=== PATIENT | female | born 1935 | race Caucasian/White ===

== ENCOUNTER → 2018-06-25 | Outpatient (CLI) | payer OTHER ==
[~2018-06-25] MED LIST: ALEN70 PO; CALCAVITD PO; CALCAVITDA; CELE200 PO; CHOL10002; CHOL10002 PO; FOLI1 PO; HYDSUL200 PO; Hair, Skin & N1 EACH; METTREX2.5; METTREX2.5 PO; ONE DAILY COMP1 EACH PO; SULF500A PO
[2018-06-29 15:07] LABS: HPV 16 Negative (Negative); HPV 18 Negative (Negative); HPV OTHER HR TYPES Negative (Negative)
== END ==
LOC: LAB 17:37 → LAB SHORT 17:37
PROVIDERS: Nurse Practitioner Women's Health
DX: Z12.4 Encounter for screening for malignant neoplasm of cervix (principal); N89.8 Other specified noninflammatory disorders of vagina
CPT/HCPCS: 87070; 87077; 87186; 87205; 87624; G0123

== ENCOUNTER 2020-02-11 00:24 | Day surgery (SDC) | payer OTHER | END 2020-02-11 11:15 | disposition home or self-care (01) | LOC: ATC 00:24 | DX: M05.9 Rheumatoid arthritis with rheumatoid factor, unspecified (principal); J44.9 Chronic obstructive pulmonary disease, unspecified | CPT/HCPCS: J7050; Q5103 ==

== ENCOUNTER 2020-04-28 00:08 | Day surgery (SDC) | payer OTHER ==
[~2020-04-28 00:08] MED LIST changes: -CALCAVITDA; -CHOL10002 PO; +OYSTER SHELL 51 EACH PO; +VITAMIN D32000 UNI1 PO
[2020-04-28] MEDS ORDERED: PRED5 PO (09:40)
--- NOTE | 2020-04-28 11:40 | NUR ---
PT C/O SLIGHT DIZZINESS UPON STANDING AFTER RECLINING. RN HAD PT SIT UP FOR A FEW MINUTES UNTIL PT STATED SHE FELT BETTER. THIS RN OFFERED TO TRANSPORT PT TO HER VEHICLE BUT PT ADAMANTLY REFUSED. PT WAS LAST SEEN AMBULATING OUT THE RASHIDA DOOR.
== END 2020-04-28 11:37 | disposition home or self-care (01) ==
LOC: ATC 00:08
DX: M05.9 Rheumatoid arthritis with rheumatoid factor, unspecified (principal); Z79.899 Other long term (current) drug therapy
CPT/HCPCS: 96413; J7050; Q5103

== ENCOUNTER 2020-06-05 12:36 | Emergency (ER) | payer OTHER ==
[~2020-06-05] VITALS: Ht 403.9 cm; Wt 46.3 kg
[~2020-06-05 12:36] MED LIST changes: +PRED5 PO
== END 2020-06-05 15:15 | disposition home or self-care (01) ==
LOC: ER 12:36
DX: S20.219A Contusion of unspecified front wall of thorax, initial encounter (principal); Z79.899 Other long term (current) drug therapy; Z79.52 Long term (current) use of systemic steroids; V09.20XA Pedestrian injured in traffic accident involving unspecified motor vehicles, initial encounter; V89.2XXA Person injured in unspecified motor-vehicle accident, traffic, initial encounter
CPT/HCPCS: 71046; 99284-25

== ENCOUNTER → 2020-07-29 | Outpatient (CLI) | payer OTHER ==
[2020-07-29 10:22] LABS: BASOPHILS ABSOLUTE AUTO 0.06 K/mm3 (0.00-0.23); BASOPHILS PERCENT AUTO 1 % (0-2); EOSINOPHILS ABSOLUTE AUTO 0.12 K/mm3 (0.00-0.68); EOSINOPHILS PERCENT AUTO 1 % (0-6); Hematocrit 38.2 % (33.0-51.0); Hemoglobin 12.1 g/dL (11.5-16.0); IMMATURE GRAN ABSOLUTE AUTO 0.04 K/mm3 (0.00-0.10); IMMATURE GRAN PERCENT AUTO 0 % (0-1); LYMPHOCYTES ABSOLUTE AUTO 0.94 K/mm3 (0.84-5.20); LYMPHOCYTES PERCENT AUTO 8 % (21-46); MONOCYTES ABSOLUTE AUTO 0.46 K/mm3 (0.16-1.47); MONOCYTES PERCENT AUTO 4 % (4-13); Mean Corpuscular HGB 29.9 pg (26.0-34.0); Mean Corpuscular HGB Conc 31.7 g/dL (31.5-36.5); Mean Corpuscular Volume 94 fL (80-100); Mean Platelet Volume 9.1 fL (9.1-12.4); NEUTROPHILS ABSOLUTE AUTO 10.02 K/mm3 (1.96-9.15); NEUTROPHILS PERCENT AUTO 86 % (41-73); Platelet Count 454 K/mm3 (150-400); RDW Coefficient Variation 14.8 % (11.7-14.2); RDW Standard Deviation 51.4 fL (35.1-46.3); Red Blood Cell Count 4.05 M/mm3 (3.80-5.20); White Blood Cell Count 11.64 K/mm3 (4.00-11.30)
[2020-07-29 10:39] LABS: Albumin, Blood 3.4 g/dL (3.4-5.0); Albumin/Globulin Ratio 0.8 (0.8-1.8); Bilirubin, Total 0.3 mg/dL (0.1-1.0); Bun/Creatinine Ratio 26.5 (12.0-20.0); Calcium, Blood 9.1 mg/dL (8.5-10.1); Creatinine, Blood 0.98 mg/dL (0.40-1.00); Globulin, Blood 4.5 g/dL (2.2-4.0); Potassium, Blood 4.6 mmol/L (3.5-5.5); Thyroid Stimulating Hormone 1.598 uIU/mL (0.360-4.800); Total Protein, Blood 7.9 g/dL (6.4-8.2); Uric Acid, Blood 4.2 mg/dL (2.6-6.0)
== END ==
LOC: LAB SHORT 10:16 → LAB EV 10:16
PROVIDERS: Physician Assistant
DX: L03.116 Cellulitis of left lower limb (principal); R53.83 Other fatigue
CPT/HCPCS: 80053; 84443; 84550; 85025

== ENCOUNTER → 2020-08-02 | Outpatient (CLI) | payer OTHER | END | disposition home or self-care (01) | LOC: LAB 16:45 → LAB SHORT 16:45 | DX: L03.116 Cellulitis of left lower limb (principal) | CPT/HCPCS: 87070; 87075; 87205 ==

== ENCOUNTER 2020-08-18 01:35 | Day surgery (SDC) | payer OTHER | END 2020-08-18 11:55 | disposition home or self-care (01) | LOC: ATC 01:35 | DX: M05.9 Rheumatoid arthritis with rheumatoid factor, unspecified (principal); J44.9 Chronic obstructive pulmonary disease, unspecified | CPT/HCPCS: 96413; 96415; A9270; J7050; Q5103 ==

== ENCOUNTER 2020-10-16 00:14 | Day surgery (SDC) | payer OTHER | END 2020-10-16 11:30 | disposition home or self-care (01) | LOC: ATC 00:14 | DX: M05.9 Rheumatoid arthritis with rheumatoid factor, unspecified (principal); M81.0 Age-related osteoporosis without current pathological fracture; J44.9 Chronic obstructive pulmonary disease, unspecified; Z79.899 Other long term (current) drug therapy; Z79.52 Long term (current) use of systemic steroids | CPT/HCPCS: A9270; J7050; Q5103 ==

== ENCOUNTER 2020-12-11 00:21 | Day surgery (SDC) | payer OTHER | END 2020-12-11 11:23 | disposition home or self-care (01) | LOC: ATC 00:21 | DX: M05.9 Rheumatoid arthritis with rheumatoid factor, unspecified (principal); M81.0 Age-related osteoporosis without current pathological fracture; J44.9 Chronic obstructive pulmonary disease, unspecified; M19.90 Unspecified osteoarthritis, unspecified site; Z79.899 Other long term (current) drug therapy; Z79.1 Long term (current) use of non-steroidal anti-inflammatories (NSAID) | CPT/HCPCS: 96413; 96415; A9270; J7050; Q5103 ==

== ENCOUNTER 2021-02-05 00:36 | Day surgery (SDC) | payer OTHER | END 2021-02-05 11:58 | disposition home or self-care (01) | LOC: ATC 00:36 | DX: M05.9 Rheumatoid arthritis with rheumatoid factor, unspecified (principal); J44.9 Chronic obstructive pulmonary disease, unspecified; Z86.010 Personal history of colon polyps; Z79.899 Other long term (current) drug therapy | CPT/HCPCS: 96413; A9270; J7050; Q5103 ==

== ENCOUNTER 2021-04-02 00:05 | Day surgery (SDC) | payer OTHER | END 2021-04-02 11:18 | disposition home or self-care (01) | LOC: ATC 00:05 | DX: M05.9 Rheumatoid arthritis with rheumatoid factor, unspecified (principal); J44.9 Chronic obstructive pulmonary disease, unspecified | CPT/HCPCS: 96413; 96415; A9270; J7050; Q5103 ==

== ENCOUNTER 2021-05-30 01:46 | Day surgery (SDC) | payer OTHER ==
[2021-05-31 18:07] LABS: BASOPHILS ABSOLUTE AUTO 0.05 K/mm3 (0.00-0.23); BASOPHILS PERCENT AUTO 1 % (0-2); EOSINOPHILS ABSOLUTE AUTO 0.22 K/mm3 (0.00-0.68); EOSINOPHILS PERCENT AUTO 4 % (0-6); IMMATURE GRAN ABSOLUTE AUTO 0.01 K/mm3 (0.00-0.10); IMMATURE GRAN PERCENT AUTO 0 % (0-1); LYMPHOCYTES ABSOLUTE AUTO 1.37 K/mm3 (0.84-5.20); LYMPHOCYTES PERCENT AUTO 22 % (21-46); MONOCYTES ABSOLUTE AUTO 0.51 K/mm3 (0.16-1.47); MONOCYTES PERCENT AUTO 8 % (4-13); Mean Corpuscular HGB 31.8 pg (26.0-34.0); Mean Corpuscular HGB Conc 31.6 g/dL (31.5-36.5); Mean Corpuscular Volume 101 fL (80-100); Mean Platelet Volume 10.9 fL (9.1-12.4); NEUTROPHILS PERCENT AUTO 65 % (41-73); Platelet Count 285 K/mm3 (150-400); RDW Coefficient Variation 13.4 % (11.7-14.2); RDW Standard Deviation 49.1 fL (35.1-46.3); Red Blood Cell Count 3.77 M/mm3 (3.80-5.20)
[2021-05-31 21:31] LABS: Alanine Aminotransfer (ALT/SGP 32 U/L (12-78); Albumin, Blood 3.6 g/dL (3.4-5.0); Albumin/Globulin Ratio 1.1 (0.8-1.8); Alk Phos 44 U/L (50-136); Anion Gap 6 mmol/L (6-16); Aspartate Aminotrans (AST/SGOT 43 U/L (12-37); Bilirubin, Total 0.4 mg/dL (0.1-1.0); Blood Urea Nitrogen 25 mg/dL (8-24); Bun/Creatinine Ratio 32.8 (12.0-20.0); CO2, Blood 25 mmol/L (21-32); Calcium, Blood 9.1 mg/dL (8.5-10.1); Chloride, Blood 106 mmol/L (98-108); Creatinine, Blood 0.76 mg/dL (0.40-1.00); Globulin, Blood 3.4 g/dL (2.2-4.0); Glomerular Filtration Rate >60 (60-); Glucose, Blood 131 mg/dL (70-99); Potassium, Blood 4.2 mmol/L (3.5-5.5)
[2021-06-05 12:21] LABS: White Blood Cell Count 6.16 K/mm3 (4.00-11.30)
[2021-06-05 12:22] LABS: Sodium, Blood 137 mmol/L (136-145)
== END 2021-05-30 16:43 | disposition home or self-care (01) ==
LOC: ATC 01:46
PROVIDERS: Internal Medicine Rheumatology
DX: M05.9 Rheumatoid arthritis with rheumatoid factor, unspecified (principal); J44.9 Chronic obstructive pulmonary disease, unspecified
CPT/HCPCS: 80053; 85025; 85651; 96413; 96415; A9270; J7050; Q5103

== ENCOUNTER 2021-07-25 02:20 | Day surgery (SDC) | payer OTHER ==
[~2021-07-25] VITALS: Wt 47.4 kg
[2021-07-25] MEDS ORDERED: INFLECTRA100 MG IV (09:22)
[2021-07-25 09:33] LABS: BASOPHILS ABSOLUTE AUTO 0.07 K/mm3 (0.00-0.23); BASOPHILS PERCENT AUTO 1 % (0-2); EOSINOPHILS ABSOLUTE AUTO 0.29 K/mm3 (0.00-0.68); EOSINOPHILS PERCENT AUTO 4 % (0-6); Hematocrit 40.8 % (33.0-51.0); IMMATURE GRAN ABSOLUTE AUTO 0.02 K/mm3 (0.00-0.10); IMMATURE GRAN PERCENT AUTO 0 % (0-1); LYMPHOCYTES ABSOLUTE AUTO 1.61 K/mm3 (0.84-5.20); LYMPHOCYTES PERCENT AUTO 23 % (21-46); MONOCYTES ABSOLUTE AUTO 0.57 K/mm3 (0.16-1.47); MONOCYTES PERCENT AUTO 8 % (4-13); Mean Corpuscular HGB 31.8 pg (26.0-34.0); Mean Corpuscular HGB Conc 31.9 g/dL (31.5-36.5); Mean Corpuscular Volume 100 fL (80-100); Mean Platelet Volume 9.7 fL (9.1-12.4); NEUTROPHILS ABSOLUTE AUTO 4.56 K/mm3 (1.96-9.15); NEUTROPHILS PERCENT AUTO 64 % (41-73); Platelet Count 324 K/mm3 (150-400); RDW Coefficient Variation 13.2 % (11.7-14.2); RDW Standard Deviation 47.9 fL (35.1-46.3); Red Blood Cell Count 4.09 M/mm3 (3.80-5.20); White Blood Cell Count 7.12 K/mm3 (4.00-11.30)
[2021-07-25 09:53] LABS: Alanine Aminotransfer (ALT/SGP 31 U/L (12-78); Albumin, Blood 4.1 g/dL (3.4-5.0); Alk Phos 127 U/L (50-136); Anion Gap 3 mmol/L (6-16); Aspartate Aminotrans (AST/SGOT 31 U/L (12-37); Bilirubin, Total 0.6 mg/dL (0.1-1.0); Blood Urea Nitrogen 20 mg/dL (8-24); Bun/Creatinine Ratio 26.9 (12.0-20.0); CO2, Blood 29 mmol/L (21-32); Calcium, Blood 9.8 mg/dL (8.5-10.1); Chloride, Blood 107 mmol/L (98-108); Creatinine, Blood 0.74 mg/dL (0.40-1.00); Globulin, Blood 4.2 g/dL (2.2-4.0); Glomerular Filtration Rate >60 (60-); Glucose, Blood 66 mg/dL (70-99); Potassium, Blood 3.7 mmol/L (3.5-5.5); Sodium, Blood 139 mmol/L (136-145); Total Protein, Blood 8.3 g/dL (6.4-8.2)
== END 2021-07-25 11:20 | disposition home or self-care (01) ==
LOC: ATC 02:20
PROVIDERS: Internal Medicine Rheumatology
DX: M05.9 Rheumatoid arthritis with rheumatoid factor, unspecified (principal); J44.9 Chronic obstructive pulmonary disease, unspecified
CPT/HCPCS: 80053; 85025; 85651; 96413; 96415; A9270; J7050; Q5103

== ENCOUNTER 2021-11-01 00:57 | Day surgery (SDC) | payer OTHER ==
[~2021-11-01] VITALS: Wt 48.2 kg
[~2021-11-01 00:57] MED LIST changes: +INFLECTRA100 MG IV
[2021-11-01 14:33] LABS: BASOPHILS ABSOLUTE AUTO 0.03 K/mm3 (0.00-0.23); BASOPHILS PERCENT AUTO 1 % (0-2); EOSINOPHILS ABSOLUTE AUTO 0.16 K/mm3 (0.00-0.68); EOSINOPHILS PERCENT AUTO 3 % (0-6); Hematocrit 40.7 % (33.0-51.0); Hemoglobin 12.8 g/dL (11.5-16.0); IMMATURE GRAN ABSOLUTE AUTO 0.02 K/mm3 (0.00-0.10); IMMATURE GRAN PERCENT AUTO 0 % (0-1); LYMPHOCYTES ABSOLUTE AUTO 1.28 K/mm3 (0.84-5.20); LYMPHOCYTES PERCENT AUTO 23 % (21-46); MONOCYTES ABSOLUTE AUTO 0.39 K/mm3 (0.16-1.47); MONOCYTES PERCENT AUTO 7 % (4-13); Mean Corpuscular HGB 30.8 pg (26.0-34.0); Mean Corpuscular HGB Conc 31.4 g/dL (31.5-36.5); Mean Corpuscular Volume 98 fL (80-100); Mean Platelet Volume 10.2 fL (9.1-12.4); NEUTROPHILS ABSOLUTE AUTO 3.75 K/mm3 (1.96-9.15); NEUTROPHILS PERCENT AUTO 67 % (41-73); Platelet Count 307 K/mm3 (150-400); RDW Standard Deviation 46.1 fL (35.1-46.3); Red Blood Cell Count 4.16 M/mm3 (3.80-5.20); White Blood Cell Count 5.63 K/mm3 (4.00-11.30)
[2021-11-01 15:13] LABS: Alanine Aminotransfer (ALT/SGP 39 U/L (12-78); Albumin, Blood 3.8 g/dL (3.4-5.0); Albumin/Globulin Ratio 1.1 (0.8-1.8); Alk Phos 64 U/L (50-136); Anion Gap 7 mmol/L (6-16); Aspartate Aminotrans (AST/SGOT 35 U/L (12-37); Bilirubin, Total 0.5 mg/dL (0.1-1.0); Blood Urea Nitrogen 25 mg/dL (8-24); Bun/Creatinine Ratio 31.2 (12.0-20.0); CO2, Blood 30 mmol/L (21-32); Calcium, Blood 9.1 mg/dL (8.5-10.1); Chloride, Blood 105 mmol/L (98-108); Globulin, Blood 3.4 g/dL (2.2-4.0); Glomerular Filtration Rate >60 (60-); Glucose, Blood 91 mg/dL (70-99); Potassium, Blood 4.9 mmol/L (3.5-5.5); Sodium, Blood 142 mmol/L (136-145); Total Protein, Blood 7.2 g/dL (6.4-8.2)
== END 2021-11-01 15:41 | disposition home or self-care (01) ==
LOC: ATC 00:57
PROVIDERS: Internal Medicine Rheumatology
DX: M05.9 Rheumatoid arthritis with rheumatoid factor, unspecified (principal); J44.9 Chronic obstructive pulmonary disease, unspecified; Z79.899 Other long term (current) drug therapy
CPT/HCPCS: 80053; 85025; 85651; 96413; 96415; A9270; J7050; Q5103

== ENCOUNTER 2021-12-27 00:21 | Day surgery (SDC) | payer OTHER ==
[~2021-12-27] VITALS: Wt 48.7 kg
[2021-12-27 09:25] LABS: BASOPHILS ABSOLUTE AUTO 0.04 K/mm3 (0.00-0.23); BASOPHILS PERCENT AUTO 1 % (0-2); EOSINOPHILS ABSOLUTE AUTO 0.16 K/mm3 (0.00-0.68); EOSINOPHILS PERCENT AUTO 3 % (0-6); Hematocrit 39.3 % (33.0-51.0); Hemoglobin 12.5 g/dL (11.5-16.0); IMMATURE GRAN ABSOLUTE AUTO 0.01 K/mm3 (0.00-0.10); IMMATURE GRAN PERCENT AUTO 0 % (0-1); LYMPHOCYTES ABSOLUTE AUTO 1.19 K/mm3 (0.84-5.20); LYMPHOCYTES PERCENT AUTO 21 % (21-46); MONOCYTES PERCENT AUTO 7 % (4-13); Mean Corpuscular HGB 31.6 pg (26.0-34.0); Mean Corpuscular HGB Conc 31.8 g/dL (31.5-36.5); Mean Corpuscular Volume 99 fL (80-100); Mean Platelet Volume 10.4 fL (9.1-12.4); NEUTROPHILS ABSOLUTE AUTO 3.91 K/mm3 (1.96-9.15); NEUTROPHILS PERCENT AUTO 69 % (41-73); Platelet Count 237 K/mm3 (150-400); RDW Coefficient Variation 13.3 % (11.7-14.2); RDW Standard Deviation 48.5 fL (35.1-46.3); Red Blood Cell Count 3.96 M/mm3 (3.80-5.20); White Blood Cell Count 5.71 K/mm3 (4.00-11.30)
[2021-12-27 09:53] LABS: Alanine Aminotransfer (ALT/SGP 36 U/L (12-78); Albumin, Blood 3.8 g/dL (3.4-5.0); Albumin/Globulin Ratio 1.2 (0.8-1.8); Alk Phos 66 U/L (50-136); Anion Gap 6 mmol/L (6-16); Aspartate Aminotrans (AST/SGOT 33 U/L (12-37); Bilirubin, Total 0.5 mg/dL (0.1-1.0); Blood Urea Nitrogen 22 mg/dL (8-24); Bun/Creatinine Ratio 27.2 (12.0-20.0); CO2, Blood 27 mmol/L (21-32); Calcium, Blood 8.9 mg/dL (8.5-10.1); Chloride, Blood 110 mmol/L (98-108); Creatinine, Blood 0.81 mg/dL (0.40-1.00); Globulin, Blood 3.3 g/dL (2.2-4.0); Glomerular Filtration Rate >60 (60-); Glucose, Blood 91 mg/dL (70-99); Potassium, Blood 4.2 mmol/L (3.5-5.5); Sodium, Blood 143 mmol/L (136-145); Total Protein, Blood 7.1 g/dL (6.4-8.2)
== END 2021-12-27 11:25 | disposition home or self-care (01) ==
LOC: ATC 00:21
PROVIDERS: Internal Medicine Rheumatology
DX: M05.9 Rheumatoid arthritis with rheumatoid factor, unspecified (principal)
CPT/HCPCS: 80053; 85025; 85651; 96413; 96415; A9270; J7050; Q5103

== ENCOUNTER 2022-04-04 12:21 | Inpatient (IN) | payer OTHER ==
[~2022-04-04] VITALS: Ht 149.9 cm; Wt 49.6 kg
[2022-04-04 14:20] LABS: BASOPHILS ABSOLUTE AUTO 0.06 K/mm3 (0.00-0.23); BASOPHILS PERCENT AUTO 1 % (0-2); EOSINOPHILS ABSOLUTE AUTO 0.12 K/mm3 (0.00-0.68); EOSINOPHILS PERCENT AUTO 1 % (0-6); Hemoglobin 13.2 g/dL (11.5-16.0); IMMATURE GRAN ABSOLUTE AUTO 0.01 K/mm3 (0.00-0.10); IMMATURE GRAN PERCENT AUTO 0 % (0-1); LYMPHOCYTES ABSOLUTE AUTO 1.21 K/mm3 (0.84-5.20); LYMPHOCYTES PERCENT AUTO 14 % (21-46); MONOCYTES ABSOLUTE AUTO 0.68 K/mm3 (0.16-1.47); MONOCYTES PERCENT AUTO 8 % (4-13); Mean Corpuscular HGB 30.9 pg (26.0-34.0); Mean Corpuscular HGB Conc 32.2 g/dL (31.5-36.5); Mean Corpuscular Volume 96 fL (80-100); Mean Platelet Volume 9.1 fL (9.1-12.4); NEUTROPHILS ABSOLUTE AUTO 6.32 K/mm3 (1.96-9.15); NEUTROPHILS PERCENT AUTO 75 % (41-73); Platelet Count 326 K/mm3 (150-400); RDW Coefficient Variation 12.8 % (11.7-14.2); RDW Standard Deviation 45.1 fL (35.1-46.3); Red Blood Cell Count 4.27 M/mm3 (3.80-5.20)
[2022-04-04 14:37] LABS: Albumin, Blood 2.9 g/dL (3.4-5.0); Albumin/Globulin Ratio 0.7 (0.8-1.8); Bilirubin, Total 0.5 mg/dL (0.1-1.0); Bun/Creatinine Ratio 31.3 (12.0-20.0); Calcium, Blood 8.8 mg/dL (8.5-10.1); Creatinine, Blood 0.67 mg/dL (0.40-1.00); Globulin, Blood 4.4 g/dL (2.2-4.0); Potassium, Blood 4.2 mmol/L (3.5-5.5); Total Protein, Blood 7.3 g/dL (6.4-8.2)
[2022-04-04 14:50] LABS: Influenza A, PCR NEGATIVE (NEGATIVE); Influenza B, PCR NEGATIVE (NEGATIVE); Resp Syncytial Virus, PCR NEGATIVE (NEGATIVE); SARS-Cov-2 (COVID-19) PCR, MMC NEGATIVE (NEGATIVE)
[2022-04-04 15:20] LABS: Creatine Kinase MB 3.4 ng/mL (0.0-3.6); Creatine Kinase MB Index 0.8 (0.0-4.0)
[2022-04-04 15:45] LABS: Source, Urine Straight Cath
[2022-04-04 15:49] LABS: Appearance, Urine Hazy (Clear); Bilirubin, Urine Neg (Neg); Blood, Urine 1+ (Neg); Color, Urine Yellow (P-Yellow); Glucose Qualitative, Urine Neg (Neg); Ketones, Urine 3+ (Neg); Leukocyte Esterase, Urine Neg (Neg); Nitrite, Urine Neg (Neg); Protein, Urine 2+ (Neg); Specific Gravity, Urine 1.025 (1.003-1.022); Urobilinogen, Urine NORM (Normal)
[2022-04-04] MEDS ORDERED: CELEBREX200 MG PO (15:52)
[2022-04-04] MEDS ORDERED: FOLI1 PO (15:53)
[2022-04-04] MEDS ORDERED: PLAQUENIL200 M1 PO (15:55)
[2022-04-04] MEDS ORDERED: METHOTREXATE2.5 M1 PO (15:56)
[2022-04-04] MEDS ORDERED: Pentoxifylline400 MG PO (15:57)
[2022-04-04 15:59] LABS: Red Blood Cells, Urine 0-2 /hpf (0-2); White Blood Cells, Urine Rare /hpf (0-5)
[2022-04-04 16:00] LABS: Amorphous Light (0-Heavy); Bacteria Many /hpf; Hyaline Casts 0-2 /lpf (0-2); Mucus Light (0-Heavy); Squamous Epithelial Cells Not Seen /hpf (Few)
[2022-04-05 04:43] LABS: BASOPHILS ABSOLUTE AUTO 0.05 K/mm3 (0.00-0.23); BASOPHILS PERCENT AUTO 1 % (0-2); EOSINOPHILS ABSOLUTE AUTO 0.22 K/mm3 (0.00-0.68); EOSINOPHILS PERCENT AUTO 3 % (0-6); Hematocrit 36.4 % (33.0-51.0); Hemoglobin 11.6 g/dL (11.5-16.0); IMMATURE GRAN ABSOLUTE AUTO 0.03 K/mm3 (0.00-0.10); IMMATURE GRAN PERCENT AUTO 0 % (0-1); LYMPHOCYTES ABSOLUTE AUTO 1.54 K/mm3 (0.84-5.20); LYMPHOCYTES PERCENT AUTO 20 % (21-46); MONOCYTES ABSOLUTE AUTO 0.53 K/mm3 (0.16-1.47); MONOCYTES PERCENT AUTO 7 % (4-13); Mean Corpuscular HGB 31.2 pg (26.0-34.0); Mean Corpuscular HGB Conc 31.9 g/dL (31.5-36.5); Mean Corpuscular Volume 98 fL (80-100); Mean Platelet Volume 9.3 fL (9.1-12.4); NEUTROPHILS PERCENT AUTO 69 % (41-73); Platelet Count 295 K/mm3 (150-400); RDW Coefficient Variation 13.2 % (11.7-14.2); RDW Standard Deviation 46.5 fL (35.1-46.3); Red Blood Cell Count 3.72 M/mm3 (3.80-5.20); White Blood Cell Count 7.57 K/mm3 (4.00-11.30)
[2022-04-05 05:08] LABS: Albumin, Blood 2.3 g/dL (3.4-5.0); Albumin/Globulin Ratio 0.6 (0.8-1.8); Bilirubin, Total 0.4 mg/dL (0.1-1.0); Bun/Creatinine Ratio 25.6 (12.0-20.0); Creatinine, Blood 0.7 mg/dL (0.40-1.00); Globulin, Blood 3.9 g/dL (2.2-4.0); Total Protein, Blood 6.2 g/dL (6.4-8.2)
--- NOTE | 2022-04-05 06:04 | NUR ---
PT IS ALERT/O BUT FORGETFUL. 1-ASSIST TO BSC THIS SHIFT, NONPRODUCTIVE DRY COUGH. TELE MONITOR ORDERED THIS SHIFT. BED ALARM ON FOR SAFETY.
--- NOTE | 2022-04-05 17:13 | NUR ---
SHIFT SUMMARY PATIENT IS ALERT AND ORIENTED. PATIENT HAS BEEN PLEASENT AND COOPERATIVE WITH CARE. PATIENT HAS HAD NO ACUTE EVENTS THIS SHIFT. VITAL SIGNS REVIEWED. PATIENT HAS BEEN IN CHAIR MOST OF DAY. FAMILY HAS BEEN UPDATED THIS SHIFT. PATIENT IS ON 5L NC. BED IN LOCKED AND LOWEST POSITION. PATIENT HAS HAD NO COMPLAINTS OF PAIN, NAUSEA OR SOB THIS SHIFT. CALL LIGHT IN PLACE. WILL MONITOR UNTIL SHIFT CHANGE.
--- NOTE | 2022-04-06 04:25 | NUR ---
SHIFT SUMMARY PT AOX3-4. USE CALL LIGHT APPROPRIATELY. PT WAS ON 5L O2 NASAL CANULA AT THE BEGINNING OF SHIFT, SATURATING ABOVE 95%. WEAN OFF 02 OVERNIGHT, PT WAS ABLE TO TOLERATE 2L O2 NASAL CANNULA SINCE 2300, SATURATING BETWEEN 91-94%. PT DENIES SOB AT REST BUT HAS DYSPNEA WITH EXERTION. PT AMBULATES IN BATHROOM WITH FWW, 1 SBA. 2 INCONTINENT AND 2 CONTINENT SMALL BM OVERNIGHT. VOIDING ADEQUATELY. VSS. DENIES CHEST PAIN. PT ON TELE: SR AT 90'S. TOLERATING PO INTAKE, DENIES N/V. CALL LIGHT WITHIN REACH. BED ALARM FOR SAFETY. WILL PROVIDE REPORT TO ONCOMING NURSE.
[2022-04-06 05:17] LABS: BASOPHILS ABSOLUTE AUTO 0.03 K/mm3 (0.00-0.23); BASOPHILS PERCENT AUTO 0 % (0-2); EOSINOPHILS ABSOLUTE AUTO 0.64 K/mm3 (0.00-0.68); EOSINOPHILS PERCENT AUTO 9 % (0-6); Hematocrit 33.7 % (33.0-51.0); IMMATURE GRAN ABSOLUTE AUTO 0.03 K/mm3 (0.00-0.10); IMMATURE GRAN PERCENT AUTO 0 % (0-1); LYMPHOCYTES ABSOLUTE AUTO 1.03 K/mm3 (0.84-5.20); LYMPHOCYTES PERCENT AUTO 15 % (21-46); MONOCYTES ABSOLUTE AUTO 0.25 K/mm3 (0.16-1.47); MONOCYTES PERCENT AUTO 4 % (4-13); Mean Corpuscular HGB 30.7 pg (26.0-34.0); Mean Corpuscular HGB Conc 32.6 g/dL (31.5-36.5); Mean Corpuscular Volume 94 fL (80-100); Mean Platelet Volume 9.4 fL (9.1-12.4); NEUTROPHILS ABSOLUTE AUTO 5.02 K/mm3 (1.96-9.15); NEUTROPHILS PERCENT AUTO 72 % (41-73); Platelet Count 320 K/mm3 (150-400); RDW Coefficient Variation 13.3 % (11.7-14.2); RDW Standard Deviation 45.5 fL (35.1-46.3); Red Blood Cell Count 3.58 M/mm3 (3.80-5.20)
[2022-04-06 05:55] LABS: Albumin, Blood 2.2 g/dL (3.4-5.0); Albumin/Globulin Ratio 0.6 (0.8-1.8); Bilirubin, Total 0.6 mg/dL (0.1-1.0); Bun/Creatinine Ratio 32.4 (12.0-20.0); Calcium, Blood 8.6 mg/dL (8.5-10.1); Creatinine, Blood 0.71 mg/dL (0.40-1.00); Globulin, Blood 3.8 g/dL (2.2-4.0); Potassium, Blood 3.9 mmol/L (3.5-5.5)
[2022-04-06 12:25] LABS: Campylobacter Sp Not Detected (NOT DETECT)
[2022-04-06 12:26] LABS: Adenovirus F 40/41 Not Detected (NOT DETECT); Astrovirus Not Detected (NOT DETECT); Cryptosporidium Not Detected (NOT DETECT); Cyclospora Cayetanensis Not Detected (NOT DETECT); E. Coli O157 Not Detected (NOT DETECT); Entamoeba Histolytica Not Detected (NOT DETECT); Enteroaggregative E. coli-EAEC Not Detected (NOT DETECT); Enteropathogenic E. coli-EPEC Not Detected (NOT DETECT); Enterotoxigenic E. coli-ETEC Not Detected (NOT DETECT); Giardia Lamblia Not Detected (NOT DETECT); Norovirus GI/GII Not Detected (NOT DETECT); Plesiomonas Shigelloides Not Detected (NOT DETECT); Rotavirus A Not Detected (NOT DETECT); Salmonella Sp Not Detected (NOT DETECT); Sapovirus Not Detected (NOT DETECT); Shiga Toxin-prod E. coli-STEC Not Detected (NOT DETECT); Shigella/Enteroin E. coli-EIEC Not Detected (NOT DETECT); Vibrio Cholerae Not Detected (NOT DETECT); Vibrio Sp Not Detected (NOT DETECT); Yersinia Enterocolitica Not Detected (NOT DETECT)
--- NOTE | 2022-04-06 17:30 | NUR ---
SHIFT SUMMARY PT AXO PLEASANT AND COOPERATIVE WITH CARE THOUGH FORGETFUL. VSS NEW IV PLACED THIS SHIFT, PATENT AND INFUSING PER EMAR. GI PANEL COLLECTED AND SENT TO LAB, SEE RESULTS. 1 BM SO FAR THIS SHIFT, PT REPORTS DIARRHEA. ON 2L VIA NC, SAT BETWEEN 89-92%. PHYSICAL THERAPY WORKED WITH PATIENT, SEE NOTE. PT HAD X-RAY THIS SHIFT, SEE RESULTS. PT DENIES PAIN, SOB AND NV. NON-PRODUCTIVE COUGH. SPEECH THERAPY EVAL THIS SHIFT, MECHANICAL SOFT DIET ORDERED, NO STRAWS. L HAND SWOLLEN R/T INFULTRATED IV, HAND ELEVATED ON PILLOW. PT UP WITH 1 ASSIST, FWW AND GB. BED IN LOW POSITION, CALL LIGHT WITHIN REACH.
--- NOTE | 2022-04-07 04:07 | NUR ---
SHIFT SUMMARY: PT IS A/OX3. THROUGHOUT THE SHIFT SHE WAS ON 2L OF O2, EXCEPT WHEN SHE AMBULATES TO THE BSC, THEN SHE IS BUMPED UP TO 3-4L. PER TELE MONITOR: . BESIDES THE CHANGE IN O2 THE PT DID NOT HAVE ANY C/O. DUE TO HER HX OF SYNCOPE AND GLF THE BED ALARM IS SET. WE'LL CONTINUE TO MONITOR THE REST OF THE SHIFT.
[2022-04-07 05:36] LABS: BASOPHILS ABSOLUTE AUTO 0.03 K/mm3 (0.00-0.23); BASOPHILS PERCENT AUTO 0 % (0-2); EOSINOPHILS ABSOLUTE AUTO 0.65 K/mm3 (0.00-0.68); EOSINOPHILS PERCENT AUTO 9 % (0-6); Hemoglobin 10.5 g/dL (11.5-16.0); Mean Corpuscular HGB 30.5 pg (26.0-34.0); Mean Corpuscular HGB Conc 31.8 g/dL (31.5-36.5); Mean Corpuscular Volume 96 fL (80-100); Mean Platelet Volume 9.6 fL (9.1-12.4); Platelet Count 325 K/mm3 (150-400); RDW Coefficient Variation 13.3 % (11.7-14.2); RDW Standard Deviation 46.6 fL (35.1-46.3); Red Blood Cell Count 3.44 M/mm3 (3.80-5.20); White Blood Cell Count 7.61 K/mm3 (4.00-11.30)
[2022-04-07 05:44] LABS: IMMATURE GRAN ABSOLUTE AUTO 0.05 K/mm3 (0.00-0.10); IMMATURE GRAN PERCENT AUTO 1 % (0-1); LYMPHOCYTES ABSOLUTE AUTO 0.99 K/mm3 (0.84-5.20); LYMPHOCYTES PERCENT AUTO 13 % (21-46); MONOCYTES ABSOLUTE AUTO 0.26 K/mm3 (0.16-1.47); MONOCYTES PERCENT AUTO 3 % (4-13); NEUTROPHILS ABSOLUTE AUTO 5.63 K/mm3 (1.96-9.15); NEUTROPHILS PERCENT AUTO 74 % (41-73)
[2022-04-07 06:16] LABS: Calcium, Blood 8.3 mg/dL (8.5-10.1); Creatinine, Blood 0.61 mg/dL (0.40-1.00); Potassium, Blood 3.8 mmol/L (3.5-5.5)
--- NOTE | 2022-04-07 17:37 | NUR ---
SHIFT SUMMARY PT AXO, PLEASANT AND COOPERATIVE WITH CARE THOUGH [place] AND FORGETFUL. VSS. PT DENIES PAIN AND N/V. CONTINUES TO BE ON 3L 02 VIA NC SATING BETWEEN 89-94. NONPRODUCTIVE COUGH CONTINUES. PT AND SON EDUCATED ON ASPIRATION RISK AND REDUCING RISK. PT CONTINUES TO COMPLAIN OF DIARRHEA, MEDICATED PER EMAR. IV PATENT AND INFUSING PER EMAR. BED IN LOW POSITION, CALL LIGHT WITHIN REACH. BARRIER CREME APPLIED TO LUCIANA SKIN R/T EXCORIATION. PT UP TO CHAIR FOR MEALS.
--- NOTE | 2022-04-08 04:51 | NUR ---
SHIFT SUMMARY: PT IS A/OX3; SHE HAS BEEN MORE IMPULSIVE GETTING OOB TO USE THE BSC. SHE REMAINS A 1-2 PA W/ FWW. SHE CONTINUES TO DESAT WHILE AMBULATING, BUT RECOVERS ONCE BACK IN BED. PER TELE MONITOR: . SHE'S BEEN EVALUATED BY SPEECH THERAPY ABOUT HER ASPIRATION RISKS AND THE RN HAS REINFORCED HER TO DRINK FROM CUPS WITH LID AND SMALL OPENINGS. THE PRN IMODIUM BID IS HELPING REDUCE THE FREQUENCY OF THE DIARRHEA. HER CALL LIGHT IS WITHIN REACH AND WE'LL CONTINUE TO MONITOR.
[2022-04-08 05:12] LABS: BASOPHILS ABSOLUTE AUTO 0.02 K/mm3 (0.00-0.23); BASOPHILS PERCENT AUTO 0 % (0-2); EOSINOPHILS ABSOLUTE AUTO 0.73 K/mm3 (0.00-0.68); EOSINOPHILS PERCENT AUTO 8 % (0-6); Hematocrit 34.2 % (33.0-51.0); Hemoglobin 10.8 g/dL (11.5-16.0); Mean Corpuscular HGB 30.3 pg (26.0-34.0); Mean Corpuscular HGB Conc 31.6 g/dL (31.5-36.5); Mean Corpuscular Volume 96 fL (80-100); Mean Platelet Volume 9.5 fL (9.1-12.4); Platelet Count 368 K/mm3 (150-400); RDW Coefficient Variation 13.4 % (11.7-14.2); RDW Standard Deviation 47.2 fL (35.1-46.3); Red Blood Cell Count 3.57 M/mm3 (3.80-5.20); White Blood Cell Count 9.02 K/mm3 (4.00-11.30)
[2022-04-08 05:23] LABS: IMMATURE GRAN ABSOLUTE AUTO 0.04 K/mm3 (0.00-0.10); IMMATURE GRAN PERCENT AUTO 0 % (0-1); LYMPHOCYTES ABSOLUTE AUTO 1.16 K/mm3 (0.84-5.20); LYMPHOCYTES PERCENT AUTO 13 % (21-46); MONOCYTES ABSOLUTE AUTO 0.29 K/mm3 (0.16-1.47); MONOCYTES PERCENT AUTO 3 % (4-13); NEUTROPHILS ABSOLUTE AUTO 6.78 K/mm3 (1.96-9.15); NEUTROPHILS PERCENT AUTO 75 % (41-73)
[2022-04-08 05:41] LABS: Magnesium, Blood 1.9 mg/dL (1.6-2.4)
[2022-04-08 06:03] LABS: Alanine Aminotransfer (ALT/SGP 57 U/L (12-78); Albumin, Blood 1.9 g/dL (3.4-5.0); Albumin/Globulin Ratio 0.5 (0.8-1.8); Alk Phos 65 U/L (50-136); Anion Gap 4 mmol/L (6-16); Aspartate Aminotrans (AST/SGOT 71 U/L (12-37); Bilirubin, Total 0.4 mg/dL (0.1-1.0); Blood Urea Nitrogen 13 mg/dL (8-24); Bun/Creatinine Ratio 22.7 (12.0-20.0); C-REACTIVE PROTEIN, EXT RANGE >19.000 mg/dL (0.000-0.300); CO2, Blood 30 mmol/L (21-32); Calcium, Blood 8.9 mg/dL (8.5-10.1); Chloride, Blood 105 mmol/L (98-108); Creatinine, Blood 0.57 mg/dL (0.40-1.00); Globulin, Blood 4.1 g/dL (2.2-4.0); Glomerular Filtration Rate 87 (60-); Glucose, Blood 119 mg/dL (70-99); Phosphorus, Blood 2.9 mg/dL (2.5-4.9); Potassium, Blood 4.3 mmol/L (3.5-5.5); Sodium, Blood 139 mmol/L (136-145)
--- NOTE | 2022-04-08 19:49 | NUR ---
SHIFT SUMMARY PT A&O X 4. VSS. WILL DESAT WITH INCREASED TALKING W/ VISITORS. HAS SAT IN CHAIR AT BEDSIDE MOST OF THE DAY. COUGH HAS WORSENED SUCH THAT HER VOICE IS RASPY & QUIETER. SHE REQUESTED A MEDICATION TO HELP QUELL HER COUGH. YOVANA HAS BEEN ON ALL OF SHIFT. SHE WORKED WITH PT & RT TODAY. HER SONS WERE AT BEDSIDE MOST OF THE SHIFT.
--- NOTE | 2022-04-09 05:09 | NUR ---
PT IS A/OX3-4. SHE IS FORGETFUL AT TIMES, BUT SHE DID USE THE CALL LIGHT FOR ALL NEEDS THIS NOC SHIFT. PER TELE MONITOR: ST/106. SHE REMAINS ON 5-6L OF O2 TO STAY >92%. TESSALON PEARLS WERE ADDED TID AND HAVE BEEN EFFECTIVE IN REDUCING THE NON-PRODUCTIVE COUGH. SHE IS A 1 PA, GAIT, AND FWW TO THE BSC. WE WILL CONTINUE TO MONITOR.
[2022-04-09 05:18] LABS: BASOPHILS ABSOLUTE AUTO 0.03 K/mm3 (0.00-0.23); BASOPHILS PERCENT AUTO 0 % (0-2); EOSINOPHILS PERCENT AUTO 8 % (0-6); Hematocrit 36.2 % (33.0-51.0); Hemoglobin 11.5 g/dL (11.5-16.0); IMMATURE GRAN ABSOLUTE AUTO 0.04 K/mm3 (0.00-0.10); IMMATURE GRAN PERCENT AUTO 0 % (0-1); LYMPHOCYTES ABSOLUTE AUTO 1.14 K/mm3 (0.84-5.20); LYMPHOCYTES PERCENT AUTO 12 % (21-46); MONOCYTES ABSOLUTE AUTO 0.33 K/mm3 (0.16-1.47); MONOCYTES PERCENT AUTO 4 % (4-13); Mean Corpuscular HGB 30.7 pg (26.0-34.0); Mean Corpuscular HGB Conc 31.8 g/dL (31.5-36.5); Mean Corpuscular Volume 97 fL (80-100); Mean Platelet Volume 9.3 fL (9.1-12.4); NEUTROPHILS ABSOLUTE AUTO 7.18 K/mm3 (1.96-9.15); NEUTROPHILS PERCENT AUTO 75 % (41-73); Platelet Count 412 K/mm3 (150-400); RDW Coefficient Variation 13.6 % (11.7-14.2); RDW Standard Deviation 47.9 fL (35.1-46.3); Red Blood Cell Count 3.75 M/mm3 (3.80-5.20); White Blood Cell Count 9.52 K/mm3 (4.00-11.30)
[2022-04-09 05:47] LABS: Magnesium, Blood 1.9 mg/dL (1.6-2.4)
[2022-04-09 05:54] LABS: Alanine Aminotransfer (ALT/SGP 69 U/L (12-78); Albumin, Blood 1.8 g/dL (3.4-5.0); Albumin/Globulin Ratio 0.4 (0.8-1.8); Alk Phos 79 U/L (50-136); Anion Gap 5 mmol/L (6-16); Aspartate Aminotrans (AST/SGOT 85 U/L (12-37); Bilirubin, Total 0.4 mg/dL (0.1-1.0); Blood Urea Nitrogen 12 mg/dL (8-24); Bun/Creatinine Ratio 21.1 (12.0-20.0); C-REACTIVE PROTEIN, EXT RANGE >19.000 mg/dL (0.000-0.300); CO2, Blood 30 mmol/L (21-32); Calcium, Blood 9.5 mg/dL (8.5-10.1); Chloride, Blood 104 mmol/L (98-108); Creatinine, Blood 0.57 mg/dL (0.40-1.00); Globulin, Blood 4.4 g/dL (2.2-4.0); Glomerular Filtration Rate 87 (60-); Glucose, Blood 113 mg/dL (70-99); Potassium, Blood 4.4 mmol/L (3.5-5.5); Sodium, Blood 139 mmol/L (136-145); Total Protein, Blood 6.2 g/dL (6.4-8.2)
--- NOTE | 2022-04-09 20:29 | NUR ---
PT TO CAT SCAN BY WHEELCHAIR.
--- NOTE | 2022-04-09 23:39 | NUR ---
TELE REPORTS PT RHYTHM HAS CHANGED TO ATRIAL FIBRILLATION AND SHE IS ALTERNATING BETWEEN 120S AND 140S. HOSPITALIST CONTACTED FOR ORDERS. 10 MG OF IV CARDIZEM TO BE ADMINISTERED.
[2022-04-09 23:40] LABS: Influenza A, PCR NEGATIVE (NEGATIVE); Influenza B, PCR NEGATIVE (NEGATIVE); Resp Syncytial Virus, PCR NEGATIVE (NEGATIVE); SARS-Cov-2 (COVID-19) PCR, MMC NEGATIVE (NEGATIVE)
[2022-04-10 00:18] LABS: PCO2 Arterial 49.7 mmHg (35-45); PO2 Arterial 73.6 mmHg (80-100); pH Blood Arterial 7.43 (7.35-7.45)
--- NOTE | 2022-04-10 01:44 | NUR ---
CARDIZEM ADMINISTERED PER DEC. TELE INFORMS THIS RN THAT THE PATIENT HAS CONVERTED BACK TO SINUS IN THE 90S. HER OXYGEN SATURATIONS ARE IMPROVING WITH 7 L BY NRB WHEN SHE IS WEARING IT. DESATS INTO THE LOW 80S WHEN SHE REMOVES THE MASK.
--- NOTE | 2022-04-10 05:06 | NUR ---
CIRCULATION SALES REPRESENTATIVE SUMMARY ADMITTED FOR ACUTE HYPOXEMIC RESPIRATORY FAILURE. PT IS A FULL CODE. SHE HAD SOME DEVELOPMENT OF A FIB ON TELE AT 2339. HOSPITALIST CONTACTED AND ORDER FOR 10 MG OF IV CARDIZEM OBTAINED AND ADMINISTERED WITH IMPROVEMENT AND CONVERSION TO SINUS AT 98 AT 0144 THIS MORNING - SHE HAS NO PREVIOUS HISTORY OF AFIB. PT OXYGEN HAS BEEN DECREASING THROUGHOUT THE SHIFT WITH THE PT HYPERVENTILATING DESPITE BREATHING COACHING. SHE WAS PLACED ON A NRB AT 15 LPM TO MAINTAIN SATURATION IN THE 90S. PT PLACED ON CPAP PER RT RECOMMENDATION BUT THE PT REFUSES TO KEEP THE CPAP MASK ON SAYING "I CAN'T BREATHE". NRB LEFT ON THROUGHOUT THE NIGHT WITH TITRATION DOWN TO 7LPM. PT CONTINUES TO REMOVE THE MASK MULTIPLE TIMES WHILE SLEEPING, DROPPING TO HIGH 70S ON RA BUT RETURNING TO 94-95% ON 7L BY NRB WHEN MASK IS REPLACED. PT SAYS THAT SHE IS UNAWARE THAT SHE IS TAKING THE MASK OFF. RAPID COVID TEST WAS NEGATIVE. SHE HAS A DRY AND HACKING COUGH. SHE IS INCREASINGLY WEAK AND IS NOW A 2PA TO [facility]. CONTINUING TO HAVE SOFT UNFORMED STOOL. PT IS SUPPOSED TO BE DISCHARGED TO [facility].
[2022-04-10 06:01] LABS: BASOPHILS ABSOLUTE AUTO 0.03 K/mm3 (0.00-0.23); BASOPHILS PERCENT AUTO 0 % (0-2); EOSINOPHILS ABSOLUTE AUTO 0.87 K/mm3 (0.00-0.68); EOSINOPHILS PERCENT AUTO 10 % (0-6); Hematocrit 36.2 % (33.0-51.0); IMMATURE GRAN ABSOLUTE AUTO 0.05 K/mm3 (0.00-0.10); IMMATURE GRAN PERCENT AUTO 1 % (0-1); LYMPHOCYTES ABSOLUTE AUTO 1.17 K/mm3 (0.84-5.20); LYMPHOCYTES PERCENT AUTO 14 % (21-46); MONOCYTES ABSOLUTE AUTO 0.38 K/mm3 (0.16-1.47); MONOCYTES PERCENT AUTO 4 % (4-13); Mean Corpuscular HGB 29.8 pg (26.0-34.0); Mean Corpuscular HGB Conc 30.4 g/dL (31.5-36.5); Mean Corpuscular Volume 98 fL (80-100); Mean Platelet Volume 9.3 fL (9.1-12.4); NEUTROPHILS ABSOLUTE AUTO 6.16 K/mm3 (1.96-9.15); NEUTROPHILS PERCENT AUTO 71 % (41-73); Platelet Count 430 K/mm3 (150-400); RDW Coefficient Variation 13.6 % (11.7-14.2); RDW Standard Deviation 48.2 fL (35.1-46.3); Red Blood Cell Count 3.69 M/mm3 (3.80-5.20); White Blood Cell Count 8.66 K/mm3 (4.00-11.30)
[2022-04-10 06:21] LABS: Albumin, Blood 1.6 g/dL (3.4-5.0); Albumin/Globulin Ratio 0.4 (0.8-1.8); Bilirubin, Total 0.2 mg/dL (0.1-1.0); Bun/Creatinine Ratio 22.8 (12.0-20.0); Calcium, Blood 9.7 mg/dL (8.5-10.1); Creatinine, Blood 0.66 mg/dL (0.40-1.00); Globulin, Blood 4.4 g/dL (2.2-4.0); Magnesium, Blood 2.2 mg/dL (1.6-2.4); Potassium, Blood 4.4 mmol/L (3.5-5.5)
[2022-04-10 13:08] LABS: Influenza A, PCR NEGATIVE (NEGATIVE); Influenza B, PCR NEGATIVE (NEGATIVE); Resp Syncytial Virus, PCR NEGATIVE (NEGATIVE); SARS-Cov-2 (COVID-19) PCR, MMC NEGATIVE (NEGATIVE)
[2022-04-10 14:25] LABS: International Normalized Ratio 1.07; Prothrombin Time Results 11.2 Sec (9.7-11.5)
[2022-04-10 16:57] LABS: PCO2 Arterial 77.7 mmHg (35-45); PO2 Arterial 117 mmHg (80-100)
--- NOTE | 2022-04-10 18:02 | NUR ---
TRANSFER PT TO ICU 16 FROM MEDICAL FLOOR PATIENT TRANSFERED TO ICU SHE IS RESPONSIVE TO PAINFUL STIMULI WITHDRAWLING ALL EXTREMETIES APPROPRIATELY. SHE WILL SQUEEZE MY HAND WITH HER HAND ON HER RIGHT SIDE TO AGGRESIVE VERBAL STIMULI. PUPIL ARE EQUAL REACTIVE TO LIGHT BILAT SIZE 3 EACH PUPIL. SHE HAD ONE POWER GLIDE TO LEFT UPPER ARM AND A SECOND POWER GLIDE TO RIGHT UPPER ARM 20 G 8CM. SONS ARE AT HER BEDSIDE AT 1800 TONIGHT. PATIENT IS WEARING BIPAP 12/8 HER CO2 WAS 77.7 ON RECENT ABG. PULSE STABLE 90'S BP STABLE, RR 22-24 COURSE THROUGHOUT SPO2 97% ON 8L OXYGEN BLEED IN. AWAITING TO GO FOR HEAD CT. FOLLOW ABG AT 1900 APPROX.
--- NOTE | 2022-04-10 19:19 | NUR ---
TX TO ICU 1706 FROM 302- THIS AM PT WAS A/O X3, ALERT AND PLEASANT. SBA TO CHAIR FOR BREAKFAST. TIRED QUICKLY AND RETURNED TO BED. HAD BEEN ON NRM FROM [facility] AND SWITCHED TO OXYMIZER 10L AT AROUND 0800- SATS ABOVE 95%, BUT STARTED TO DESAT DURING EATING AND INCEASED TO 12. PT FELL ASLEEP AFTER EATING LUNCH AROUND 1245 AND NAPPED. RN IN TO INSERT POWERGLIDE AND REPORTED THAT PT DIDN'T EVEN FLINCH DURING PROCEDURE. RN TO ASSESS PT 1630, CALLED DR SIEGEL TO ALERT OF SUDDEN CHANGE IN NEURO. PT OBTUNDED, DOES NOT RESPOND TO STRENAL RUB OR PAIN OR LOUD VERBAL AND SHAKING. HILARY BILAT. NOTED SLIGHT BODY TREMOR AND ARMS TONIC AND CONTRACTURED. OBTAINED ABG AND GLUCOSE BEFORE TX TO ICU, IN BED-BED TX ICU 16. DR ESPINOZA, CHRISTAL AND DR GONZALEZ ALL IN ICU COORDINATING PLAN. REPORT GIVEN TO BEDSIDE RN.
--- NOTE | 2022-04-10 20:00 | NUR ---
ASSUMED CARE PATIENT LYING IN BED WITH EYES CLOSED. PATIENTS SONS-DADA AND MAGY- AT BEDSIDE. BIPAP IN PLACE 09/26 WITH 8LPM BLEED IN. SPO2 MID TO HIGH 90'S. LUNG SOUNDS CLEAR AND DIM. WEAK NONPRODUCTIVE COUGH. REPORT COMPLETED WITH MEAGHAN WALDRON.
[2022-04-10 20:16] LABS: PCO2 Arterial 58.5 mmHg (35-45); PO2 Arterial 72.3 mmHg (80-100); pH Blood Arterial 7.41 (7.35-7.45)
[2022-04-11 03:43] LABS: BASOPHILS ABSOLUTE AUTO 0.01 K/mm3 (0.00-0.23); BASOPHILS PERCENT AUTO 0 % (0-2); EOSINOPHILS PERCENT AUTO 0 % (0-6); Hematocrit 32.8 % (33.0-51.0); Hemoglobin 10.3 g/dL (11.5-16.0); IMMATURE GRAN ABSOLUTE AUTO 0.04 K/mm3 (0.00-0.10); IMMATURE GRAN PERCENT AUTO 1 % (0-1); LYMPHOCYTES ABSOLUTE AUTO 0.87 K/mm3 (0.84-5.20); LYMPHOCYTES PERCENT AUTO 11 % (21-46); MONOCYTES ABSOLUTE AUTO 0.38 K/mm3 (0.16-1.47); MONOCYTES PERCENT AUTO 5 % (4-13); Mean Corpuscular HGB 30.6 pg (26.0-34.0); Mean Corpuscular HGB Conc 31.4 g/dL (31.5-36.5); Mean Corpuscular Volume 97 fL (80-100); Mean Platelet Volume 9.4 fL (9.1-12.4); NEUTROPHILS ABSOLUTE AUTO 6.77 K/mm3 (1.96-9.15); NEUTROPHILS PERCENT AUTO 84 % (41-73); Platelet Count 465 K/mm3 (150-400); RDW Coefficient Variation 13.5 % (11.7-14.2); RDW Standard Deviation 48.5 fL (35.1-46.3); Red Blood Cell Count 3.37 M/mm3 (3.80-5.20); White Blood Cell Count 8.07 K/mm3 (4.00-11.30)
[2022-04-11 03:58] LABS: International Normalized Ratio 1.05
[2022-04-11 04:02] LABS: Alanine Aminotransfer (ALT/SGP 82 U/L (12-78); Albumin, Blood 1.5 g/dL (3.4-5.0); Albumin/Globulin Ratio 0.3 (0.8-1.8); Alk Phos 67 U/L (50-136); Anion Gap 4 mmol/L (6-16); Aspartate Aminotrans (AST/SGOT 88 U/L (12-37); Bilirubin, Total 0.2 mg/dL (0.1-1.0); Blood Urea Nitrogen 23 mg/dL (8-24); Bun/Creatinine Ratio 36.5 (12.0-20.0); CO2, Blood 36 mmol/L (21-32); Calcium, Blood 9.6 mg/dL (8.5-10.1); Chloride, Blood 101 mmol/L (98-108); Creatinine, Blood 0.63 mg/dL (0.40-1.00); Globulin, Blood 4.5 g/dL (2.2-4.0); Glomerular Filtration Rate 85 (60-); Glucose, Blood 155 mg/dL (70-99); Magnesium, Blood 2.4 mg/dL (1.6-2.4); Phosphorus, Blood 4.5 mg/dL (2.5-4.9); Potassium, Blood 4.9 mmol/L (3.5-5.5); Sodium, Blood 141 mmol/L (136-145); Vancomycin, Random 7.9 ug/mL
[2022-04-11 05:38] LABS: PCO2 Arterial 53.2 mmHg (35-45); PO2 Arterial 78.1 mmHg (80-100); pH Blood Arterial 7.46 (7.35-7.45)
--- NOTE | 2022-04-11 06:44 | NUR ---
SHIFT SUMMARY HEAD CT COMPLETED AT BEGINNING OF SHIFT. MOVED FROM ROOM [address] BIPAP REMAINED IN PLACE T/O SHIFT WITH SPO2 HIGH 90'S-100%. DESATS AFTER 1-2 MINUTES OF REMOVING BIPAP. PATIENT IS MORE ORIENTED, ABLE TO LIFT HIPS TO ASSIST WITH BEDPAN USE, AND USES CALL LIGHT APPROPRIATELY. THIS MORNING PATIENT HAD PERIOD OF CONFUSION-SHE DID NOT REMEMBER WHERE SHE WAS AND WANTED TO TALK TO HER SONS. PATIENT WAS STILL EMOTIONALLY UPSET DESPITE REORIENTATION AND EXPLAINING THAT SONS WOULD BE IN TO SEE HER THIS MORNING. NO OTHER CHANGES DURING SHIFT.
--- NOTE | 2022-04-11 07:15 | NUR ---
Assumed care of pt at 0700. Report received from Lali HARDING. Pt A&O x 4. Answers questions. Follows commands. Verbalizes needs. Pleasant and cooperative with care. On BiPAP 12/8 and 8 LPM. SR per monitor.
--- NOTE | 2022-04-11 11:51 | NUR ---
IN ICU ROOM 13. HERE TO GET PATIENT READY FOR PROCEDURE. DR COLVIN AND ICU RNS BEGINNING INTUBATION PROCEDURE.
--- NOTE | 2022-04-11 12:15 | NUR ---
04/11/22 1215 Filiberto Talley PROCEDURE DONE IN ICU WITH ICU RNS MONITORING SEDATION PER DR GONZALEZ
--- NOTE | 2022-04-11 13:00 | NUR ---
INTUBATION AND BRONCH Pt intubated for planned bronchoscopy. Per Dr Abebe, pt will remain intubated over night. 1150 - 4 mg versed 1151 - 30 mg propofol 1152 - Successful intubation. 8.0 cm ETT placed 24 cm at teeth. Positive color change on colormetric CO2 detector and bilateral breath sounds auscultated. 1153 - 30 mg propofol 1159 - 6 mg versed. Propofol drip started at 20 mcg/kg/min 1203 - 200 mcg neosynephrine. Pt placed on ventilator ACVC 14/350/5/100%. 1206 - Propofol drip incresed to 30 mcg/kg/min 1211 - 10 mg propofol, 100 mcg neosynephrine 1221 - 10 mg propofol 1227 - Propofol drip increased to 40 mcg/kg/min. Bronchoscopy over. 1229 - 100 mcg neosynephrine 1235 - 100 mcg neosynephrine During procedure ETT adjusted to 22 cm at upper lip. Placement verified with bronchoscopy. After bronch, OG and crocker catheter inserted. Dr Abebe called family to update.
[2022-04-11 15:52] LABS: Source, Urine Foley catheter
[2022-04-11 15:55] LABS: Bilirubin, Urine Neg (Neg); Blood, Urine 1+ (Neg); Color, Urine Yellow (P-Yellow); Glucose Qualitative, Urine Neg (Neg); Ketones, Urine Neg (Neg); Leukocyte Esterase, Urine Neg (Neg); Nitrite, Urine Neg (Neg); Protein, Urine Neg (Neg); Specific Gravity, Urine 1.015 (1.003-1.022); Urobilinogen, Urine NORM (Normal)
[2022-04-11 16:12] LABS: Appearance, Urine Clear (Clear)
[2022-04-11 16:14] LABS: Bacteria Few /hpf; Granular Casts 0-2 /lpf (0); Red Blood Cells, Urine 0-2 /hpf (0-2); Squamous Epithelial Cells Not Seen /hpf (Few); White Blood Cells, Urine 0-2 /hpf (0-5)
[2022-04-11 16:54] LABS: C DIFFICILE DNA NEGATIVE (Negative)
--- NOTE | 2022-04-11 17:13 | NUR ---
SUMMARY Neuro: Sedated with propofol at 40 mcg/kg/min, for ventilator tolerance. Responsive to pain. Gag and cough present. PERRL. Musculoskeletal: Bilat wrist restraints for prevention of self-extubation. Requires total care for all ADLs. Repositioned Q2H. Respiratory: 8.0 cm ETT, 22 cm at upper lip. Vent settings ACVC 14/350/5/45%. Productive cough with moderate amounts of clear, white, stringy sputum. Lungs clear in upper lobes, diminished in bases. Cardiac: SR per monitor. Pt had some tachycardia during intubation and sedation-related hypotension which resolved when bronchoscopy was complete. No edema. Capillary refill less than 3 seconds BUE and BLE. 2+ radial, pedal, and posttibial pulses. GI: Tube feed and flush per orders. Normal BT. Pt's BMs are loose and mucousy. Cdiff pending. : Lozada catheter in place for strict measurement of fluid intake and output. Clear yellow urine draining. Skin: No changes to initial assessment. Calazime cream applied to gluteal fold.
[2022-04-11 19:00] LABS: PCO2 Arterial 46.7 mmHg (35-45); PO2 Arterial 97.8 mmHg (80-100); pH Blood Arterial 7.48 (7.35-7.45)
[2022-04-12 04:01] LABS: BASOPHILS ABSOLUTE AUTO 0.02 K/mm3 (0.00-0.23); BASOPHILS PERCENT AUTO 0 % (0-2); EOSINOPHILS ABSOLUTE AUTO 0.25 K/mm3 (0.00-0.68); EOSINOPHILS PERCENT AUTO 3 % (0-6); Hemoglobin 8.8 g/dL (11.5-16.0); Mean Corpuscular HGB 30.3 pg (26.0-34.0); Mean Corpuscular HGB Conc 31.4 g/dL (31.5-36.5); Mean Corpuscular Volume 97 fL (80-100); Mean Platelet Volume 9.5 fL (9.1-12.4); Platelet Count 403 K/mm3 (150-400); RDW Coefficient Variation 13.5 % (11.7-14.2); RDW Standard Deviation 47.8 fL (35.1-46.3)
[2022-04-12 04:03] LABS: IMMATURE GRAN ABSOLUTE AUTO 0.05 K/mm3 (0.00-0.10); IMMATURE GRAN PERCENT AUTO 1 % (0-1); LYMPHOCYTES PERCENT AUTO 28 % (21-46); MONOCYTES ABSOLUTE AUTO 0.52 K/mm3 (0.16-1.47); MONOCYTES PERCENT AUTO 7 % (4-13); NEUTROPHILS ABSOLUTE AUTO 4.86 K/mm3 (1.96-9.15); NEUTROPHILS PERCENT AUTO 62 % (41-73)
[2022-04-12 04:21] LABS: Albumin, Blood 2.4 g/dL (3.4-5.0); Anion Gap 5 mmol/L (6-16); Blood Urea Nitrogen 26 mg/dL (8-24); Bun/Creatinine Ratio 35.1 (12.0-20.0); CO2, Blood 34 mmol/L (21-32); Chloride, Blood 105 mmol/L (98-108); Creatinine, Blood 0.74 mg/dL (0.40-1.00); Glomerular Filtration Rate 78 (60-); Glucose, Blood 114 mg/dL (70-99); Magnesium, Blood 2.4 mg/dL (1.6-2.4); Phosphorus, Blood 1.9 mg/dL (2.5-4.9); Potassium, Blood 3.7 mmol/L (3.5-5.5); Sodium, Blood 144 mmol/L (136-145)
--- NOTE | 2022-04-12 05:31 | NUR ---
SHIFT SUMMARY PATIENT REMAINED INTUBATED AND SEDATED T/O SHIFT. ATTEMPTED TO TITRATE DOWN PROPOFOL UNSUCCESSFULLY. WHEN DECREASED FROM 40MCG/KG/MIN TO 30MCG/KG/MIN PATIENT BEGAN COUGHING CONSTANTLY, GRIMACING, AND NOT TOLERATING VENTILATOR. VENT SETTINGS REMAINED 14/350/5/35% WITH SPO2 HIGH 90'S-100%. LUNG SOUNDS REMAINED CLEAR T/O. VHP TF INCREASED TO FR OF 30ML/HR WITH 30ML Q4H WATER FLUSHES-TOLERATING WELL WITH NO RESIDUALS. PATIENT HAD MULTIPLE SMALL BM THAT WERE LOOSE, MUCOUSY, AND BROWN. JUSTICE HAD 800ML OUT. TEMP INCREASED DURING THE NIGHT TO 100.1F @ HIGHEST. BLANKETS REMOVED AND TEMP DECREASED TO 99.6F. NO ACUTE EVENTS DURING SHIFT.
--- NOTE | 2022-04-12 08:23 | NUR ---
Assumed care of pt at 0700. Report received from Lali Vera RN. Pt sedated with propofol 40 mcg/kg/min. 8.0 cm ETT is 22 cm at upper lip. ACVC 14/350/5/35%. SpO2 90% or greater. SR per monitor. BP stable.
--- NOTE | 2022-04-12 14:56 | NUR ---
Sedation has been off since 939 and pt has been on open-ended SBT since this time as well. Pt nods head to answer yes/no questions, follows commands. But does not open eyes. Rate 22-24, tidal volumes 250-300 mL with PS 10/5. Pt's sons in room and have been updated by Dr Eaton.
--- NOTE | 2022-04-12 17:55 | NUR ---
SUMMARY Neuro: Propofol off since this AM. Responsive to verbal stimlulus. Nods head "yes" or "no" in response to questions. Opens mouth for oral care. Rarely opens eyes when asked to do so (pt usually nods head "no" when asked to perform this task). Moves all extremities with equal strength and range of motion. Cough and gag intact. PERRL 3 mm. Musculoskeletal: Pt oberseved pulling against restraints and attempting to reach for ETT. Requires assist with ADLs. Respiratory: 8.0 cm ETT, 22 cm at upper lip. Pt on open ended SBT since this AM. Required PS 10 to achieve tidal volumes consistently greater than 225 mL. Plan to continue open ended SBT overnight with PS 15. SpO2 9O% or greater with 30% FiO2. RR 22-24. Tidal volumes 250-300 mL. Small amount of thick, poe sputum suctioned from ETT. GI: TF stopped at beginning of SBT in anticipation for extubation. Restarted this afternoon after established plan to keep pt intubated. 0 mL residual measured. Pt has had several loose bowel movements. Discussed with choir leader. Banana flakes ordered. : Good output of urine this shift. Skin: Unchanged from initial assessment. Psychosocial: Pt withdrawn and often shakes head "no" instead of following commands. Sons visited at bedside for majority of day.
--- NOTE | 2022-04-12 17:55 | NUR ---
Plan to keep pt on pressure support, now 15/5 and 30% FiO2 overnight without propofol. Fentanyl available PRN.
--- NOTE | 2022-04-12 20:00 | NUR ---
Assumed Care. Opens eyes to verbal stimuli. Followed directions, last putter away equal but weak. Wiggled toes, flextion withdrawal. Gag, swallow, cough all noted. HILARY. LS diminished, clear. Spontanous vent settings 15/5/30%. Sats >90%. Tolerating it well. TV holding above 300. Suction walls thick sputum from ETT tube. Oral care provided. Sinus on monitor. Rate in the 80's. BP WNL. ABd soft, BT hyperactive, passing flatus, and liquid stools. Lozada patent and draining. IVF infusing along with K-phos. Repositioned. Will continue to monitor.
[2022-04-13 04:29] LABS: BASOPHILS ABSOLUTE AUTO 0.03 K/mm3 (0.00-0.23); BASOPHILS PERCENT AUTO 0 % (0-2); EOSINOPHILS ABSOLUTE AUTO 0.71 K/mm3 (0.00-0.68); EOSINOPHILS PERCENT AUTO 10 % (0-6); Hematocrit 29.1 % (33.0-51.0); Hemoglobin 9.2 g/dL (11.5-16.0); IMMATURE GRAN ABSOLUTE AUTO 0.08 K/mm3 (0.00-0.10); IMMATURE GRAN PERCENT AUTO 1 % (0-1); LYMPHOCYTES ABSOLUTE AUTO 1.23 K/mm3 (0.84-5.20); LYMPHOCYTES PERCENT AUTO 17 % (21-46); MONOCYTES ABSOLUTE AUTO 0.34 K/mm3 (0.16-1.47); MONOCYTES PERCENT AUTO 5 % (4-13); Mean Corpuscular HGB 30.2 pg (26.0-34.0); Mean Corpuscular HGB Conc 31.6 g/dL (31.5-36.5); Mean Corpuscular Volume 95 fL (80-100); Mean Platelet Volume 9.6 fL (9.1-12.4); NEUTROPHILS ABSOLUTE AUTO 4.84 K/mm3 (1.96-9.15); NEUTROPHILS PERCENT AUTO 67 % (41-73); Platelet Count 399 K/mm3 (150-400); RDW Coefficient Variation 13.6 % (11.7-14.2); RDW Standard Deviation 47.3 fL (35.1-46.3); Red Blood Cell Count 3.05 M/mm3 (3.80-5.20); White Blood Cell Count 7.23 K/mm3 (4.00-11.30)
[2022-04-13 04:51] LABS: Albumin, Blood 2.2 g/dL (3.4-5.0); Anion Gap 5 mmol/L (6-16); Blood Urea Nitrogen 21 mg/dL (8-24); CO2, Blood 32 mmol/L (21-32); Chloride, Blood 104 mmol/L (98-108); Creatinine, Blood 0.66 mg/dL (0.40-1.00); Glomerular Filtration Rate 84 (60-); Glucose, Blood 114 mg/dL (70-99); Phosphorus, Blood 3.6 mg/dL (2.5-4.9); Potassium, Blood 3.8 mmol/L (3.5-5.5); Sodium, Blood 141 mmol/L (136-145); Vancomycin, Trough 12.2 ug/mL (5.0-10.0)
--- NOTE | 2022-04-13 06:10 | NUR ---
SHIFT SUMMARY; Pt opens eyes to verbal stimuli, responds with head shakes when told what is going to occcur. She wiggled toes, training engineer bilaterally, weak but did have movement. Gross moter movements noted t/o shift. LS clear, with dim bases, mild thick walls secreations via ETT tube suctioning. Remained on spontanous pressure 15/5 FIO2 30% entire shift. T-Volumes have remained 250 and higher. T-Max-100. Sinus rate 80's. BP WNL. Continued to have liquid brown stool every time she coughed. Urine output 1450cc. No other changes to note. Will report to [facility].
--- NOTE | 2022-04-13 07:15 | NUR ---
Assumed care of pt at 0700. Report received from Kellie HARDING. Pt off sedation since morning of 04/12. Received no fentanyl during previous day shift or overnight. Pt responsive to verbal stimulus. Clenches jaw with oral care. Cough and gag present. Withdraws all extremities in response to pain. Vent PS 15/5 and 30% FiO2. SpO2 90% or greater. Lungs clear t/o. SR per monitor. OG tube with feed and flush per orders.
--- NOTE | 2022-04-13 15:00 | NUR ---
Family called this RN into room because "patient woke up". Family states that they were reading cards from friends and family members to the patient and she woke up and was attentive to what they were saying. On assessment, when this RN says hello to the patient, patient mouths "hello" back to the nurse. Able to student success counselor on command and nods head in understanding when plan of care discussed. Dr Eaton notified.
--- NOTE | 2022-04-13 17:25 | NUR ---
SUMMARY Neuro: Pt remains off propofol and has not had any fentanyl. Calm. Cough and gag present. Sometimes opens eyes spontaneously, sometimes verbal stimulation is required. PERRL. Musculoskeletal: Moves all extremities with equal strength and range of motion. Able to help with repositioning. Respiratory: PS 15/5, 30% FiO2. SpO2 90% or greater. Small amount of secretions from ETT. BAL cultures pending Cardiac: SR per monitor. BP stable. No edema. Capillary refill <3 seconds BUE and BLE. GI: 0 mL residual measured. TF per orders. 2 BMs this shift, loose and brown. Abd soft and not tender. : Lozada catheter with good urine output. Skin: Unchanged from initial assessment. Calazime cream to gluteal fold.
--- NOTE | 2022-04-13 19:00 | NUR ---
Assumed care. Report received from denae HARDING. Family at bedside. Pt resting in bed, on ventilator, vent settings: PS 15/5/30%. L&R PG in place, NS tko at 10 ml/hr. Lozada catheter in place. VS stable, will continue to monitor.
[2022-04-14 03:59] LABS: BASOPHILS ABSOLUTE AUTO 0.04 K/mm3 (0.00-0.23); BASOPHILS PERCENT AUTO 1 % (0-2); EOSINOPHILS PERCENT AUTO 11 % (0-6); Hematocrit 29.3 % (33.0-51.0); Hemoglobin 9.3 g/dL (11.5-16.0); IMMATURE GRAN ABSOLUTE AUTO 0.08 K/mm3 (0.00-0.10); IMMATURE GRAN PERCENT AUTO 1 % (0-1); LYMPHOCYTES ABSOLUTE AUTO 0.97 K/mm3 (0.84-5.20); LYMPHOCYTES PERCENT AUTO 14 % (21-46); MONOCYTES ABSOLUTE AUTO 0.32 K/mm3 (0.16-1.47); MONOCYTES PERCENT AUTO 5 % (4-13); Mean Corpuscular HGB 30.3 pg (26.0-34.0); Mean Corpuscular HGB Conc 31.7 g/dL (31.5-36.5); Mean Corpuscular Volume 95 fL (80-100); Mean Platelet Volume 9.7 fL (9.1-12.4); NEUTROPHILS ABSOLUTE AUTO 4.98 K/mm3 (1.96-9.15); NEUTROPHILS PERCENT AUTO 69 % (41-73); Platelet Count 404 K/mm3 (150-400); RDW Coefficient Variation 13.9 % (11.7-14.2); RDW Standard Deviation 47.9 fL (35.1-46.3); Red Blood Cell Count 3.07 M/mm3 (3.80-5.20); White Blood Cell Count 7.19 K/mm3 (4.00-11.30)
[2022-04-14 04:16] LABS: Anion Gap 4 mmol/L (6-16); Blood Urea Nitrogen 22 mg/dL (8-24); Bun/Creatinine Ratio 37.1 (12.0-20.0); CO2, Blood 32 mmol/L (21-32); Chloride, Blood 104 mmol/L (98-108); Creatinine, Blood 0.59 mg/dL (0.40-1.00); Glomerular Filtration Rate 87 (60-); Glucose, Blood 133 mg/dL (70-99); Phosphorus, Blood 2.7 mg/dL (2.5-4.9); Potassium, Blood 4.1 mmol/L (3.5-5.5); Sodium, Blood 140 mmol/L (136-145)
--- NOTE | 2022-04-14 06:25 | NUR ---
SHIFT SUMMARY. PT CONTINUES IN BED, ON VENTILATOR, NO SEDATION. NO CHANGES IN VENT SETTINGS. PT AROUSABLE, ABLE TO NOD YES AND NO, CALL LIGHT WITHIN REACH. POWERGLIDES SALINE LOCKED, TF AT GOAL RATE 30 ML/HR. JUSTICE CATH IN PLACE, 750 MLS OUT THIS SHIFT. VS STABLE, SEE ASSESSMENT FOR FURTHER DETAILS. WILL CONTINUE TO MONITOR AND REPORT OFF TO DAYSHIFT RN.
--- NOTE | 2022-04-14 08:00 | NUR ---
INITIAL ASSESSMENT PATIENT INTUBATED. NOT ON SEDATION. PATIENT RESPONDS TO VERBAL STIMULI AND FOLLOWS SIMPLE COMMANDS. ABLE TO WIGGLES TOES AND HANDS TO COMMAND. PATIENT WEAK BUT ABLE TO MOVE ALL EXTREMITIES. PATIENT HAS CORE TEMP OF 100.1 DEGREES FAHRENHEIT. PATIENT ON SPONTANEOUS PRESSURE SUPPORT 15/5, 30% FIO2. LUNGS CLEAR IN UPPER LOBES AND DIMINISHED IN LOWER LOBES. NO SECRETIONS NOTED WITH ETT SUCTIONING. PATIENT IN SR, HR IN THE 80S. SBP IN THE 1-TEENS. + BOWEL SOUNDS. OG IN PLACE. PIVOT 1.5 INFUSING AT GOAL RATE OF 30 MLS/ HOUR WITH 30 ML WATER FLUSH Q4H. DATE OF LAST BM YESTERDAY. JUSTICE DRAINING YELLOW COLORED URINE. SKIN PALE AND FRAGILE. SCATTERED BRUISES NOTED T/O. GLUTEAL FOLD REDDENED. BED LOW, CALL LIGHT IN REACH. SONS AT BEDSIDE. WILL CONTINUE TO MONITOR FREQUENTLY THROUGHOUT SHIFT.
--- NOTE | 2022-04-14 10:40 | NUR ---
DR. STARKEY UPDATED ON PATIENT STATUS. INFORMED THAT LUNGS CLEAR AND SATTING WELL ON SPONTANEOUS PRESSURE SUPPORT AT 30% FIO2. INFORMED THAT TMAX 100.3 DEGREES FAHRENHEIT ON GLOBAL CEO. NO ORDERS RECEIVED AT THIS TIME. STATED HE WOULD SEE PATIENT AND SPEAK TO TWO SONS IN ROOM SHORTLY.
--- NOTE | 2022-04-14 12:30 | NUR ---
PATIENT HAS TEMP OF 99.4 DEGREES FAHRENHEIT. HR 80S. SBP IN THE 1-TEENS. SPONTANEOUS PRESSURE SUPPORT 13/5, 30% FI02. PATIENT PLACED ON PROPOFOL EARLIER TO KEEP COMFORTABLE BUT HAD TO BE PLACED ON AC SETTINGS. PATIENT CHANGED OVER TO PRECEDEX AND TAKEN OFF PROPOFOL. PRECEDEX AT 0.2 MCG/ KG/ HOUR. PATIENT PLACED BACK ON THE SPONTANEOUS SETTINGS AND IS DOING WELL. BLOOD SUGAR 130. NO OTHER ACUTE CHANGES TO NOTE ON AT THIS TIME.
--- NOTE | 2022-04-14 16:10 | NUR ---
PATIENT HAS TEMP OF 99.3 DEGREES FAHRENHEIT. PRECEDEX AT 0.1 MCG/ KG/ HOUR. HR IN THE 70S. SBP IN THE 120S. NO OTHER ACUTE CHANGES TO NOTE ON AT THIS TIME. WILL CONTINUE TO MONITOR.
--- NOTE | 2022-04-14 19:08 | NUR ---
SHIFT SUMMARY PATIENT REMAINED INTUBATED. PATIENT OFF SEDATION THIS AM BUT PLACED ON SEDATION TODAY FOR SIGNS OF DISCOMFORT. PATIENT ON PRECEDEX AT 0.2 MCG/ KG/ HOUR AT THIS TIME. PATIENT WAS ON 0.1 MCG/ KG/ HOUR BUT ASKED IF WANTED TO BE MORE SEDATED AND PATIENT NODDED "YES". PATIENT REMAINS FOLLOWING SIMPLE COMMANDS. PATIENT HAD TMAX OF 100.1 DEGREES FAHRENHEIT THIS SHIFT. PATIENT GIVEN PRN FENTANYL FOR SIGNS OF PAIN. PS 15/5 THIS AM AND NOW 13/5. FIO2 REMAINS AT 30%. PATIENT REMAINED IN SR, HR 70S TO 80S. SBP 90S TO 120S. SMALL, BROWN, LIQUID BM THIS SHIFT. PATIENT REMAINED ON TF AT GOAL RATE. JUSTICE DRAINED 825 MLS OF YELLOW URINE. CREAM APPLIED TO RED BOTTOM. PATIENT REPOSITIONED Q2H. BLOOD SUGARS 130 AND 194. SONS IN ROOM ALL DAY. PATIENT APPEARS COMFORTABLE AT THIS TIME. BED LOW, CALL LIGHT IN REACH. REPORT GIVEN TO ASSUMING IRRIGATION LABORER NURSE.
--- NOTE | 2022-04-14 19:37 | NUR ---
ASSUMED CARE. REPORT RECEIVED FROM ZEYNEP HARDING. PT CONTINUES IN BED, SEDATED AND VENTILATED. VENT SETTINGS: PS 13/5, 30%. PRECEDEX AT 0.2 MCG/KG/HR, NS TKO. OG TUBE IN PLACE, TF AT GOAL RATE 30 ML/HR. JUSTICE CATH IN PLACE, VS STABLE ATT. WILL CONTINUE TO MONITOR.
[2022-04-15 04:05] LABS: BASOPHILS ABSOLUTE AUTO 0.04 K/mm3 (0.00-0.23); BASOPHILS PERCENT AUTO 1 % (0-2); EOSINOPHILS PERCENT AUTO 6 % (0-6); Hematocrit 29.6 % (33.0-51.0); Hemoglobin 9.4 g/dL (11.5-16.0); Mean Corpuscular HGB 30.7 pg (26.0-34.0); Mean Corpuscular HGB Conc 31.8 g/dL (31.5-36.5); Mean Corpuscular Volume 97 fL (80-100); Mean Platelet Volume 10.3 fL (9.1-12.4); Platelet Count 384 K/mm3 (150-400); RDW Coefficient Variation 13.9 % (11.7-14.2); RDW Standard Deviation 48.6 fL (35.1-46.3); Red Blood Cell Count 3.06 M/mm3 (3.80-5.20); White Blood Cell Count 6.53 K/mm3 (4.00-11.30)
[2022-04-15 04:10] LABS: IMMATURE GRAN PERCENT AUTO 2 % (0-1); MONOCYTES PERCENT AUTO 5 % (4-13)
[2022-04-15 04:22] LABS: Bun/Creatinine Ratio 57.1 (12.0-20.0); Calcium, Blood 8.5 mg/dL (8.5-10.1); Creatinine, Blood 0.56 mg/dL (0.40-1.00); Phosphorus, Blood 2.9 mg/dL (2.5-4.9); Potassium, Blood 4.5 mmol/L (3.5-5.5)
[2022-04-15 05:06] LABS: EOSINOPHILS ABSOLUTE AUTO 0.38 K/mm3 (0.00-0.68); LYMPHOCYTES ABSOLUTE AUTO 0.99 K/mm3 (0.84-5.20); LYMPHOCYTES PERCENT AUTO 15 % (21-46); NEUTROPHILS ABSOLUTE AUTO 4.68 K/mm3 (1.96-9.15); NEUTROPHILS PERCENT AUTO 72 % (41-73)
--- NOTE | 2022-04-15 06:39 | NUR ---
SHIFT SUMMARY. PT CONTINUES IN BED, ON LIGHT SEDATION AND VENTILATED. NO VENT SETTING CHANGES THIS SHIFT. PRECEDEX STILL AT 0.2 MCG/KG/HR, NS TKO. PG IN PLACE IN L AND R ACs. JUSTICE CATHETER IN PLACE, 250 OUT THIS SHIFT. VS STABLE, SEE SHIFT ASSESSMENT FOR FURTHER DETAILS. WILL CONTINUE TO MONITOR AND REPORT OFF TO DAYSHIFT RN.
--- NOTE | 2022-04-15 08:00 | NUR ---
INITIAL ASSESSMENT PATIENT INTUBATED AND ON PRECEDEX AT 0.2 MCG/ KG/ HOUR TO HELP KEEP COMFORTABLE. PATIENT GIVEN SMALL DOSE OF PRN FENTANYL FOR COMPLAINT OF PAIN THIS AM; PATIENT REPORTS PAIN IS BETTER. PATIENT FOLLOWS SIMPLE COMMANDS. PATIENT WEAK BUT ABLE TO MOVE ALL EXTREMITIES. PATIENT AFEBRILE. LUNGS CLEAR IN UPPER LOBES AND DIMINISHED IN LOWER LOBES. PATIENT ON PS 13/5 AND 30% FIO2. NO SPUTUM NOTED WITH ETT SUCTIONING. PATIENT IN SR WITH FIRST DEGREE BLOCK. HR 70S TO 80S. SBP 90S TO 120S. ABD NONDISTENDED, SOFT, WITH NORMOACTIVE BOWEL SOUNDS NOTED. PATIENT CONTINUES TO HAVE LIQUID BMS PER CREDIT COLLECTION SPECIALIST. JUSTICE IN PLACE DRAINING YELLOW COLORED URINE. SKIN PALE AND FRAGILE. LUCIANA AREA REDDENED; CALAZIME CREAM BEING APPLIED. SCATTERED BRUISES NOTED. NS TKO. BED LOW, CALL LIGHT IN REACH. SON AT BEDSIDE. WILL CONTINUE TO MONITOR PATIENT FREQUENTLY THROUGHOUT SHIFT.
[2022-04-15 09:01] LABS: Vancomycin, Trough 12.4 ug/mL (5.0-10.0)
--- NOTE | 2022-04-15 09:30 | NUR ---
PRESSURE SUPPORT DECREASED TO [address] STARKYE.
--- NOTE | 2022-04-15 10:50 | NUR ---
PRESSURE SUPPORT DECREASED TO [address] STARKEY.
--- NOTE | 2022-04-15 11:13 | NUR ---
DR. STARKEY DECREASED PS TO 5/5.
--- NOTE | 2022-04-15 12:00 | NUR ---
PATIENT AFEBRILE. HR 60S TO 80S. SBP 80S TO 100. PS 5/5, 30% FIO2.
--- NOTE | 2022-04-15 14:08 | NUR ---
PATIENT EXTUBATED AT 1345. PATIENT TOLERATING WELL. PATIENT PLACED ON 1 L NC FOR SATS 91 TO 92% PER DR. STARKEY.
--- NOTE | 2022-04-15 16:00 | NUR ---
PATIENT AFEBRILE. HR 70S. SBP 80S TO LOW 100S. PATIENT SATTING 90% AND GREATER ON 1 L NC. PATIENT PLEASANT, COOPERATIVE, CALM, ALERT AND ORIENTED. PATIENT VISITING WITH SONS AT BEDSIDE.
--- NOTE | 2022-04-15 19:02 | NUR ---
SHIFT SUMMARY PATIENT EXTUBATED THIS AROUND 1345. PATIENT CALM, COOPERATIVE AND PLEASANT. PATIENT ALERT AND ORIENTED X 4. PATIENT HAD TMAX OF 99.0 DEGREES FAHRENHEIT. PATIENT GIVEN PRN FENTANYL GIVEN FOR SIGNS OF PAIN THIS AM. PATIENT WEAK BUT ABLE TO MOVE ALL EXTREMITIES. PATIENT SATTING 90% AND GREATER ON 1 TO 2 L NC. PATIENT REMAINED WITH FIRST DEGREE HB, HR 60S TO 80S. SBP 80S TO 120S. PATIENT HAD 4 LIQUID BMS THIS SHIFT. RECTAL TUBE PLACED. C.DIFF LAB ORDERED. TF DC'D WHEN PATIENT EXTUBATED. 1200 MLS OF URINE OUT FROM JUSTICE. CALAZIME CREAM REMAINS BEING APPLIED TO REDDENED, SORE BOTTOM. NS TKO. L FOOT AND ANKLE XR PERFORMED THIS SHIFT. SONS IN MOST OF THIS SHIFT. PATIENT APPEARS COMFORTABLE AT THIS TIME. BED LOW, CALL LIGHT IN REACH. REPORT GIVEN TO ASSUMING GRINDER OPERATOR NURSE.
--- NOTE | 2022-04-15 21:07 | NUR ---
Assumed care. Report received from daysbenjaminft RN. Patient resting in bed, on 02 via NC 2 L/min. Patient alert and oriented, call light within reach. Bilateral PG iv access in place, NS tko running. Lozada catheter in place, rectal tube in place. VS stable, will continue to monitor.
[2022-04-16 03:31] LABS: BASOPHILS ABSOLUTE AUTO 0.08 K/mm3 (0.00-0.23); BASOPHILS PERCENT AUTO 1 % (0-2); EOSINOPHILS ABSOLUTE AUTO 0.67 K/mm3 (0.00-0.68); EOSINOPHILS PERCENT AUTO 7 % (0-6); Hematocrit 32.2 % (33.0-51.0); Hemoglobin 9.9 g/dL (11.5-16.0); IMMATURE GRAN ABSOLUTE AUTO 0.12 K/mm3 (0.00-0.10); IMMATURE GRAN PERCENT AUTO 1 % (0-1); LYMPHOCYTES ABSOLUTE AUTO 2.14 K/mm3 (0.84-5.20); LYMPHOCYTES PERCENT AUTO 23 % (21-46); MONOCYTES ABSOLUTE AUTO 0.74 K/mm3 (0.16-1.47); MONOCYTES PERCENT AUTO 8 % (4-13); Mean Corpuscular HGB 30.1 pg (26.0-34.0); Mean Corpuscular HGB Conc 30.7 g/dL (31.5-36.5); Mean Corpuscular Volume 98 fL (80-100); Mean Platelet Volume 10.2 fL (9.1-12.4); NEUTROPHILS ABSOLUTE AUTO 5.77 K/mm3 (1.96-9.15); NEUTROPHILS PERCENT AUTO 61 % (41-73); Platelet Count 461 K/mm3 (150-400); RDW Coefficient Variation 13.9 % (11.7-14.2); RDW Standard Deviation 50.3 fL (35.1-46.3); Red Blood Cell Count 3.29 M/mm3 (3.80-5.20); White Blood Cell Count 9.52 K/mm3 (4.00-11.30)
[2022-04-16 03:46] LABS: Magnesium, Blood 2.6 mg/dL (1.6-2.4)
[2022-04-16 03:47] LABS: Bun/Creatinine Ratio 46.5 (12.0-20.0); Calcium, Blood 8.4 mg/dL (8.5-10.1); Creatinine, Blood 0.6 mg/dL (0.40-1.00); Phosphorus, Blood 2.4 mg/dL (2.5-4.9)
--- NOTE | 2022-04-16 05:45 | NUR ---
Patient transferred to PCU at approximately 0530. No change in patient condition throughout shift, VS stable at time of transport. Report given to EXPERIMENTAL PREFLIGHT MECHANIC.
--- NOTE | 2022-04-16 06:06 | NUR ---
CARE ASSUMPTION PT ARRIVED TO PCU FROM ICU VIA ICU BED AT APPROX 0530. PT WAS SLID BY 4 STAFF FROM ICU BED TO PCU BED. PT A&OX4. SP02>90% ON 2L NC. TELEMETRY SHOWS NSR, HR 70'S. JUSTICE CATHETER DRAINING YELLOW URINE TO GRAVITY. PT HAS RECTAL TUBE WITH LIQUID BROWN STOOL, NOT ENOUGH TO GATHER SAMPLE YET. RECTAL TUBE LEAKING AROUND BASE, PT BUTTOCKS CLEANED AND CREAM APPLIED BY PCU STAFF. PT DENIES PAIN. ORIENTED TO ROOM, CALL LIGHT. PT RESTING COMFORTABLY IN ROOM.
--- NOTE | 2022-04-16 10:24 | NUR ---
CARE ASSUMPTION THIS RN ASSUMED CARE AT 0700 FROM VAISHNAVI Nelson RN. VSS. TELE SR 60-90S. PATIENT IS ALERT AND ORIENTED X4. PERRLA. PATIENT REPORTS NO PAIN. PATIENT REPORTS NO SHORTNESS OF BREATH. LUNG SOUNDS UPPER LOBES CLEAR, LOWER LOBES DIM. PATIENT REPORTS NO CHEST PAIN/PRESSURE. CAP REFILL <3SECONDS. ABD SOFT NONTENDER AND HYPERACTIVE. SKIN HAS REDNESS IN FOLDS AND CREAM APPLIED. JUSTICE CATH DRIANING WITH GRAVITY YELLOW COLORATION. SEE SHIFT ASSESSMENT FOR FURTHER DETAILS. PATIENT FAMILY AT BEDSIDE. THIS RN DID A BEDSIDE SWALLOW EVAL DUE TO PATIENT HAVING A LOW BLOOD SUGAR THIS AM AND WANTING PATIENT TO HAVE SOME ORANGE JUICE. PATIENT PASSED BED SIDE SWALLOW EVAL. SEE INTERVENTION. SPEECH IS IN THERE CURRENTLY WORKING WITH THE PATIENT. PATIENT USES CALL LIGHT APPROPRITATELY. BED IS IN LOWEST POSITION WITH CALL LIGHT WITHIN REACH. THIS RN WILL CONTINUE TO DO HOURLY ROUNDING AND PROVIDE CARE.
[2022-04-16 13:19] LABS: C DIFFICILE DNA Duplicate (Negative)
--- NOTE | 2022-04-16 17:42 | NUR ---
SHIFT SUMMARY PATIENT NEURO REMAINS INTACT. NO ACUTE CHANGES THIS SHIFT. PATIENT IS A MECHANICAL SOFT DIET AND TAKES MEDICATIONS WITH APPLESAUCE PER SPEECH THERAPY. PATIENT HAS BEEN REPOSITIONED EVERY TWO HOURS. VSS. FAMILY HAS BEEN AT BEDSIDE ALL DAY. CALL LIGHT WITHIN REACH AND BED IN LOWEST POSITION. WILL CONTINUE TO MONITOR AND PROVIDE CARE UNTIL HAND OFF WITH NEXT SHIFT.
[2022-04-16 20:23] LABS: Adenovirus F 40/41 Not Detected (NOT DETECT); Astrovirus Not Detected (NOT DETECT); Campylobacter Sp Detected (NOT DETECT); Cryptosporidium Not Detected (NOT DETECT); Cyclospora Cayetanensis Not Detected (NOT DETECT); E. Coli O157 Not Detected (NOT DETECT); Entamoeba Histolytica Not Detected (NOT DETECT); Enteroaggregative E. coli-EAEC Not Detected (NOT DETECT); Enteropathogenic E. coli-EPEC Not Detected (NOT DETECT); Enterotoxigenic E. coli-ETEC Not Detected (NOT DETECT); Giardia Lamblia Not Detected (NOT DETECT); Norovirus GI/GII Not Detected (NOT DETECT); Plesiomonas Shigelloides Not Detected (NOT DETECT); Rotavirus A Not Detected (NOT DETECT); Salmonella Sp Not Detected (NOT DETECT); Sapovirus Not Detected (NOT DETECT); Shiga Toxin-prod E. coli-STEC Not Detected (NOT DETECT); Shigella/Enteroin E. coli-EIEC Not Detected (NOT DETECT); Vibrio Cholerae Not Detected (NOT DETECT); Vibrio Sp Not Detected (NOT DETECT); Yersinia Enterocolitica Not Detected (NOT DETECT)
--- NOTE | 2022-04-16 20:48 | NUR ---
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 CALL PLACED TO MD MAYO. MD MAYO WITH ORDERS FOR CONTACT ISOLATION AND NS GTT @100/MLS/HR X1 BAG, SEE EMAR.
--- NOTE | 2022-04-17 04:31 | NUR ---
SHIFT SUMMARY NO ACUTE CHANGES DURING SHIFT. PT ALERT, SUPER PLEASANT. SP02>90% ON RA, NEEDED 2L NC WHILE SLEEPING TO MAINTAIN SATS >90%. TELEMETRY SHOWS NSR, HR MOSTLY 80'S. VSS. PT HAS JUSTICE CATHETER DRAINING CLEAR YELLOW URINE TO GRAVITY. PT HAS RECTAL TUBE DRAINING LIQUID BROWN STOOL, LEAKS AROUND BASE, PT SKIN CLEANED, BARRIER CREAM APPLIED. PT DENIED PAIN. REPOSITIONED Q2H. PT CURRENTLY UP IN CHAIR, TRANSFERRED W/ 2 PERSON ASSIST, GB, AND FWW. NS CURRENTLY INFUSING PER EMAR. CALL LIGHT IN REACH.
[2022-04-17 09:04] LABS: Vancomycin, Trough 15.6 ug/mL (5.0-10.0)
--- NOTE | 2022-04-17 13:45 | NUR ---
DIET CHANGE: PATIENT HAD A HARDER TO INTAKING FOOD, NO COUGHING, SPITTING UP, OR DIFFICULTY, BUT PATIENT HAD REQUESTED TO BE CHANGED TO MECH SOFT. PLACE THE ORDER NO FURTHER CONCERNS OR QUESTIONS AT THIS TIME.
--- NOTE | 2022-04-17 15:13 | NUR ---
END OF SHIFT: CYNDY AFEBRILE, PATIENT WAS SEEN BY ST AND WAS UPGRADED AND TOLERATED THE FOOD HOWEVER, CYNDY REQUESTED THE FOOD BE DOWN GRADED TO MECH SOFT AGAIN SHE TOLERATED BETTER AND WAS ABLE TO EAT MORE. PATIENT HAS BEEN PLEASANT ALERT AND ORIENTED. SON HAS BEEN AT THE BEDSIDE ALMOST THE WHOLE SHIFT. HAS BEEN HELPING WITH CARE. ENGAGING WITH THE PATIENT AND NURSE. BOTH THE PATIENT AND SON HAVE BEEN EDUCATED ABOUT ACUTE ILLNESS AND CHRONIC ILLNESS. MOVING TECHNIQUES. PATIENT MOVED WELL WITH PT AND OT PLEASE SEE NOTE. PATIENT HAS IMPROVED STRENGTH AND MOBILITY. ALEX POWERGLIDE REMOVED DUE TO CATHETER TIP BEING KINKED, EVEN AFTER BANDAGE CHANGE. PATIENT HAS BEEN DOWNGRADED TO MED NO TELE, PATIENT DENIES CHEST PAIN, SOB. O2 WAS REMOVED EARLY THIS MORNING, HAS BEEN REPOSITIONED Q1-Q2 HOURS. PATIENT STILL HAVING GREAT OUTPUT THROUGH JUSTICE AND MINIMAL OUTPUT THROUGH HER RECTAL TUBE, PLAN TO DC RECAL TUBE PRIOR TO SHIFT CHANGE. PATIENT HAS ONLY SHOWED IMPROVEMENT THROUGH THE DAY. WILL CONTINUE TO MONITOR UNTIL SHIFT CHANGE.
[2022-04-18 04:25] LABS: BASOPHILS PERCENT AUTO 1 % (0-2); EOSINOPHILS ABSOLUTE AUTO 0.17 K/mm3 (0.00-0.68); EOSINOPHILS PERCENT AUTO 1 % (0-6); Hematocrit 30.7 % (33.0-51.0); Hemoglobin 9.5 g/dL (11.5-16.0); Mean Corpuscular HGB 29.8 pg (26.0-34.0); Mean Corpuscular HGB Conc 30.9 g/dL (31.5-36.5); Mean Corpuscular Volume 96 fL (80-100); Mean Platelet Volume 9.9 fL (9.1-12.4); Platelet Count 529 K/mm3 (150-400); RDW Coefficient Variation 13.9 % (11.7-14.2); RDW Standard Deviation 48.3 fL (35.1-46.3); Red Blood Cell Count 3.19 M/mm3 (3.80-5.20); White Blood Cell Count 12.42 K/mm3 (4.00-11.30)
[2022-04-18 04:27] LABS: IMMATURE GRAN ABSOLUTE AUTO 0.16 K/mm3 (0.00-0.10); IMMATURE GRAN PERCENT AUTO 1 % (0-1); LYMPHOCYTES ABSOLUTE AUTO 4.41 K/mm3 (0.84-5.20); LYMPHOCYTES PERCENT AUTO 36 % (21-46); MONOCYTES ABSOLUTE AUTO 1.06 K/mm3 (0.16-1.47); MONOCYTES PERCENT AUTO 9 % (4-13); NEUTROPHILS ABSOLUTE AUTO 6.52 K/mm3 (1.96-9.15); NEUTROPHILS PERCENT AUTO 53 % (41-73)
[2022-04-18 04:49] LABS: Albumin, Blood 2.1 g/dL (3.4-5.0); Albumin/Globulin Ratio 0.5 (0.8-1.8); Bilirubin, Total 0.4 mg/dL (0.1-1.0); Bun/Creatinine Ratio 39.8 (12.0-20.0); Calcium, Blood 8.9 mg/dL (8.5-10.1); Creatinine, Blood 0.53 mg/dL (0.40-1.00); Globulin, Blood 4.5 g/dL (2.2-4.0); Magnesium, Blood 2.1 mg/dL (1.6-2.4); Potassium, Blood 4.1 mmol/L (3.5-5.5); Total Protein, Blood 6.6 g/dL (6.4-8.2)
--- NOTE | 2022-04-18 05:32 | NUR ---
DOCTORATE OF CHIROPRACTIC SUMMARY PT IS ALERT AND COMMUNICATING APPROPRIATELY. PT'S BP WNL AND STABLE THIS SHIFT. O2 SATS >92% ON RM AIR WHEN AWAKE BUT DID DIP TO 87% WHILE PT WAS ASLEEP SO SHE WAS PLACED ON 2L NC AND MAINTAINED O2 SATS >92%. PT DID NOT HAVE ANY BOWEL MOVEMENTS THIS SHIFT. JUSTICE CATHETER IN PLACE AND DRAINING 750ML CLEAR YELLOW URINE THIS SHIFT. PT WAS ABLE TO SLEEP COMFORTABLY FOR MOST OF THE NIGHT WITH THE CALL LIGHT WITHIN REACH. WILL REPORT TO ONCOMING RN.
--- NOTE | 2022-04-18 10:21 | NUR ---
TRANSFER SUMMARY: PATIENT WAS WHEELED TO SURGICAL WITH SON DADA, ROOM 208. PATIENT WAS IN NO SIGNS OF ACUTE DISTRESS, DENIES CHEST PAIN SOB, OR WEAKNESS. PATIENT IS ALERT AND ORIENTED, ON RA, ORDERS FOR HOME MEDS PLACED PER DR. GOMEZ, PATIENT INFORMED OF PLAN AND 100 AGREEABLE, WELL SON. PATIENT STRENGTH HAS BEEN IMPRVOING WELL, TOLERATED THE JUSTICE BEING REMOVED WITH NO PROBLEMS. NO CONCERNS FOR THE PATIENT FROM THIS SUSTAINABILITY PROJECT MANAGER.
--- NOTE | 2022-04-18 17:10 | NUR ---
SHIFT SUMMARY PCU TRANSFER THIS AM. PT IS A&OX4, VSS/RA. AMB W/FWW TO B[facility]/UP TO CHAIR T/O SHIFT. TIMOTHY PO MECH SOFT DIET/THIN LIQUIDS AND MEDS WITH APPLESAUCE. VOIDING WELL, BMS++ BROWN FORMED SM/MED. IV ABX INFUSING PER EMAR. MI AT BEDSIDE. WILL REPORT TO ONCTEODORO IGLESIAS RN.
--- NOTE | 2022-04-18 18:18 | NUR ---
S/P ROBOTIC TOTAL LAP HYSTER, PT HAS BEEN HAVING N/V SINCE POST OP, PT VOMITTED ABOUT 5 TIMES, PT GIVEN ZOFRAN X2, AMBULATED TO THE BATHROOM TO VOID ORTIZ URINE, SCANT SEROUSANG. DRAINAGE NOTED ON PERIPAD, K-PAD TO ABD, DR. SPANN NOTIFIED, PHENERGAN GIVEN ORDERED, PT REPORTED RELIEF OF NAUSEA WITH 1 DOSE, 500CC NS IV BOLUS INFUSING, ABD LAP INCISIONS C/D/I, NO OTHER CHANGES THIS SHIFT.
--- NOTE | 2022-04-19 04:52 | NUR ---
FENDER FINISHER SUMMARY PT AAOX3 AND PLEASANT. DENIES PAIN. 1 ASSIST W/ FWW TO BSC. SLEEP STUDY ON PT TONIGHT PER RT, PT HAS BEEN ON RA THROUGH THE NIGHT WITH SPOT CHECKS AVG IN THE MID S. OTHER VSS. PT POSSIBLE DC TO SNF LATER TODAY. WILL CONTINUE TO MONITOR.
[2022-04-19 06:28] LABS: BASOPHILS ABSOLUTE AUTO 0.13 K/mm3 (0.00-0.23); BASOPHILS PERCENT AUTO 1 % (0-2); EOSINOPHILS ABSOLUTE AUTO 0.32 K/mm3 (0.00-0.68); EOSINOPHILS PERCENT AUTO 3 % (0-6); Hematocrit 30.7 % (33.0-51.0); Hemoglobin 9.5 g/dL (11.5-16.0); Mean Corpuscular HGB 29.5 pg (26.0-34.0); Mean Corpuscular HGB Conc 30.9 g/dL (31.5-36.5); Mean Corpuscular Volume 95 fL (80-100); Mean Platelet Volume 9.7 fL (9.1-12.4); Platelet Count 541 K/mm3 (150-400); RDW Standard Deviation 48.5 fL (35.1-46.3); Red Blood Cell Count 3.22 M/mm3 (3.80-5.20); White Blood Cell Count 12.26 K/mm3 (4.00-11.30)
[2022-04-19 06:36] LABS: IMMATURE GRAN ABSOLUTE AUTO 0.11 K/mm3 (0.00-0.10); IMMATURE GRAN PERCENT AUTO 1 % (0-1); LYMPHOCYTES ABSOLUTE AUTO 3.95 K/mm3 (0.84-5.20); LYMPHOCYTES PERCENT AUTO 32 % (21-46); MONOCYTES ABSOLUTE AUTO 0.91 K/mm3 (0.16-1.47); MONOCYTES PERCENT AUTO 7 % (4-13); NEUTROPHILS ABSOLUTE AUTO 6.84 K/mm3 (1.96-9.15); NEUTROPHILS PERCENT AUTO 56 % (41-73)
[2022-04-19 06:52] LABS: Albumin, Blood 2.1 g/dL (3.4-5.0); Albumin/Globulin Ratio 0.5 (0.8-1.8); Bilirubin, Total 0.4 mg/dL (0.1-1.0); Bun/Creatinine Ratio 36.7 (12.0-20.0); Creatinine, Blood 0.55 mg/dL (0.40-1.00); Globulin, Blood 4.2 g/dL (2.2-4.0); Potassium, Blood 3.9 mmol/L (3.5-5.5); Total Protein, Blood 6.3 g/dL (6.4-8.2)
[2022-04-19 12:11] LABS: SARS-Cov-2 (COVID-19) PCR, MMC NEGATIVE (NEGATIVE)
--- NOTE | 2022-04-19 13:00 | NUR ---
DISCHARGE SUMMARY PT A&OX4, VSS/RA, TIMOTHY PO, VOIDING WELL, AMB W/FWW TO BRP, UP TO CHAIR T/O DAY, SHOWERED/ORAL CARE/DRESSED, SONS AT BEDSIDE, PWRGLIDE DC'D. REPORT CALLED TO EBONY AT . LEFT BY WC TRANSPORT W/PACKET TO HEALTH TEACHER.
== END 2022-04-19 13:00 | DRG 870 ==
LOC: ER 12:21 → ICUW 15:35 → MEDS 15:35 → ICUW 04-10 17:05 → PCU 04-16 05:34 → SURS 04-18 10:21
PROVIDERS: Emergency Medicine; Family Medicine; Hospitalist; Internal Medicine; Internal Medicine Critical Care Medicine; ADMIT Family Medicine
PROC: 3E03329 Introduction of Other Anti-infective into Peripheral Vein, Percutaneous Approach (ICD-10-PCS; principal; 2022-04-04)
PROC: 0BH18EZ Insertion of Endotracheal Airway into Trachea, Via Natural or Artificial Opening Endoscopic (ICD-10-PCS; 2022-04-11)
PROC: 0B9G8ZX Drainage of Left Upper Lung Lobe, Via Natural or Artificial Opening Endoscopic, Diagnostic (ICD-10-PCS; 2022-04-11)
PROC: 0B9C8ZX Drainage of Right Upper Lung Lobe, Via Natural or Artificial Opening Endoscopic, Diagnostic (ICD-10-PCS; 2022-04-11)
PROC: 5A1955Z Respiratory Ventilation, Greater than 96 Consecutive Hours (ICD-10-PCS; 2022-04-11)
DX: A41.9 Sepsis, unspecified organism (principal); G92.8 Other toxic encephalopathy; J96.01 Acute respiratory failure with hypoxia; J69.0 Pneumonitis due to inhalation of food and vomit; E87.2 Acidosis; G45.9 Transient cerebral ischemic attack, unspecified; Z20.822 Contact with and (suspected) exposure to COVID-19; Z78.1 Physical restraint status; M06.9 Rheumatoid arthritis, unspecified; R65.20 Severe sepsis without septic shock; E86.0 Dehydration; I73.9 Peripheral vascular disease, unspecified; R19.7 Diarrhea, unspecified; R49.0 Dysphonia; Z98.890 Other specified postprocedural states; Z79.899 Other long term (current) drug therapy; W18.39XA Other fall on same level, initial encounter; Y92.009 Unspecified place in unspecified non-institutional (private) residence as the place of occurrence of the external cause
CPT/HCPCS: 0241U; 31500; 36415; 36600; 51701; 51702; 70450; 70549; 70551; 71045; 71046; 71250; 73600; 73620; 74022; 80048; 80053; 80069; 80202; 81001; 82550; 82553; 82803; 82947; 83605; 83735; 83880; 84100; 84145; 84484; 85025; 85610; 85730; 86140; 87040; 87071; 87075; 87086; 87205; 87493; 87507; 88108; 88312; 92526; 92610; 93005; 93010; 93306; 94002; 94003; 94660; 94664; 94760; 94762; 96365-59; 96375-59; 97110; 97116; 97161; 97165; 97530; 97535; 99285-25; A9270; A9579; C1751; C9113; J0171; J0295; J0456; J0692; J0696; J1650; J2060; J2250; J2370; J2704; J2920; J3010; J3370; J7030; J7040; J7050; J7060; J7120; J7512; J8610; P9046; U0004

== ENCOUNTER → 2022-05-16 | Outpatient (CLI) | payer OTHER ==
[~2022-05-16] MED LIST changes: +CELEBREX200 MG PO; +METHOTREXATE2.5 M1 PO; +PLAQUENIL200 M1 PO; +Pentoxifylline400 MG PO
[2022-05-16 13:01] LABS: C DIFFICILE DNA NEGATIVE (Negative)
== END | disposition home or self-care (01) ==
LOC: LAB 07:10 → LAB SHORT 07:10
PROVIDERS: Family Medicine
DX: A09 Infectious gastroenteritis and colitis, unspecified (principal)
CPT/HCPCS: 87493

== ENCOUNTER → 2023-06-05 | Outpatient (CLI) | payer OTHER ==
[2023-06-05 14:49] LABS: BASOPHILS ABSOLUTE AUTO 0.06 K/mm3 (0.00-0.23); BASOPHILS PERCENT AUTO 1 % (0-2); EOSINOPHILS ABSOLUTE AUTO 0.18 K/mm3 (0.00-0.68); EOSINOPHILS PERCENT AUTO 2 % (0-6); Hematocrit 36.6 % (33.0-51.0); Hemoglobin 11.3 g/dL (11.5-16.0); IMMATURE GRAN ABSOLUTE AUTO 0.04 K/mm3 (0.00-0.10); IMMATURE GRAN PERCENT AUTO 0 % (0-1); LYMPHOCYTES ABSOLUTE AUTO 1.54 K/mm3 (0.84-5.20); LYMPHOCYTES PERCENT AUTO 13 % (21-46); MONOCYTES ABSOLUTE AUTO 0.71 K/mm3 (0.16-1.47); MONOCYTES PERCENT AUTO 6 % (4-13); Mean Corpuscular HGB 29.7 pg (26.0-34.0); Mean Corpuscular HGB Conc 30.9 g/dL (31.5-36.5); Mean Corpuscular Volume 96 fL (80-100); Mean Platelet Volume 10.1 fL (9.1-12.4); NEUTROPHILS ABSOLUTE AUTO 9.71 K/mm3 (1.96-9.15); NEUTROPHILS PERCENT AUTO 79 % (41-73); Platelet Count 345 K/mm3 (150-400); RDW Coefficient Variation 13.2 % (11.7-14.2); RDW Standard Deviation 47.1 fL (35.1-46.3); White Blood Cell Count 12.24 K/mm3 (4.00-11.30)
[2023-06-05 14:54] LABS: Albumin, Blood 3.4 g/dL (3.4-5.0); Bilirubin, Total 0.3 mg/dL (0.1-1.0); Bun/Creatinine Ratio 34.9 (12.0-20.0); Creatinine, Blood 0.92 mg/dL (0.40-1.00); Globulin, Blood 3.3 g/dL (2.2-4.0); Potassium, Blood 4.1 mmol/L (3.5-5.5); Total Protein, Blood 6.7 g/dL (6.4-8.2)
[2023-06-07 08:12] LABS: HBSAG SCREEN Negative (Negative); HCV AB Non Reactive (Non Reactive); HEP A AB, IGM Negative (Negative); HEP B CORE AB, TOT Negative (Negative)
[2023-06-09 07:07] LABS: QUANTIFERON NIL VALUE 0.02 IU/mL (.); QUANTIFERON TB1 AG VALUE 0.02 IU/mL (.); QUANTIFERON TB2 AG VALUE 0.03 IU/mL (.); QUANTIFERON-TB GOLD PLUS Negative (Negative)
== END | disposition home or self-care (01) ==
LOC: LAB 12:00 → LAB SHORT 12:00
PROVIDERS: Internal Medicine Rheumatology
DX: M05.9 Rheumatoid arthritis with rheumatoid factor, unspecified (principal)
CPT/HCPCS: 80053; 85025; 85651; 86480; 86704; 86708; 86803; 87340

== ENCOUNTER 2023-07-01 02:11 | Day surgery (SDC) | payer OTHER ==
[2023-07-01 08:16] VITALS: BP 147/89
[2023-07-01 09:21] LABS: BASOPHILS ABSOLUTE AUTO 0.06 K/mm3 (0.00-0.23); BASOPHILS PERCENT AUTO 1 % (0-2); EOSINOPHILS ABSOLUTE AUTO 0.17 K/mm3 (0.00-0.68); EOSINOPHILS PERCENT AUTO 1 % (0-6); Hematocrit 35.4 % (33.0-51.0); Hemoglobin 11.3 g/dL (11.5-16.0); IMMATURE GRAN ABSOLUTE AUTO 0.05 K/mm3 (0.00-0.10); IMMATURE GRAN PERCENT AUTO 0 % (0-1); LYMPHOCYTES ABSOLUTE AUTO 2.06 K/mm3 (0.84-5.20); LYMPHOCYTES PERCENT AUTO 16 % (21-46); MONOCYTES ABSOLUTE AUTO 0.68 K/mm3 (0.16-1.47); MONOCYTES PERCENT AUTO 5 % (4-13); Mean Corpuscular HGB 29.7 pg (26.0-34.0); Mean Corpuscular HGB Conc 31.9 g/dL (31.5-36.5); Mean Corpuscular Volume 93 fL (80-100); Mean Platelet Volume 10.5 fL (9.1-12.4); NEUTROPHILS ABSOLUTE AUTO 9.71 K/mm3 (1.96-9.15); NEUTROPHILS PERCENT AUTO 76 % (41-73); Platelet Count 339 K/mm3 (150-400); RDW Coefficient Variation 13.8 % (11.7-14.2); Red Blood Cell Count 3.81 M/mm3 (3.80-5.20); White Blood Cell Count 12.73 K/mm3 (4.00-11.30)
[2023-07-01 09:47] LABS: Albumin, Blood 3.4 g/dL (3.4-5.0); Bilirubin, Total 0.4 mg/dL (0.1-1.0); Bun/Creatinine Ratio 27.4 (12.0-20.0); Calcium, Blood 9.5 mg/dL (8.5-10.1); Creatinine, Blood 1.06 mg/dL (0.40-1.00); Globulin, Blood 3.4 g/dL (2.2-4.0); Potassium, Blood 4.5 mmol/L (3.5-5.5); Total Protein, Blood 6.8 g/dL (6.4-8.2)
== END 2023-07-01 09:16 | disposition home or self-care (01) ==
LOC: ATC 02:11
PROVIDERS: Internal Medicine Rheumatology
DX: M05.9 Rheumatoid arthritis with rheumatoid factor, unspecified (principal); M81.0 Age-related osteoporosis without current pathological fracture
CPT/HCPCS: 80053; 85025; 85651; 96365; J0129-JA

== ENCOUNTER 2023-08-12 00:16 | Day surgery (SDC) | payer OTHER ==
[2023-08-12 10:05] VITALS: BP 132/97
[2023-08-12 10:13] LABS: BASOPHILS ABSOLUTE AUTO 0.06 K/mm3 (0.00-0.23); BASOPHILS PERCENT AUTO 1 % (0-2); EOSINOPHILS ABSOLUTE AUTO 0.11 K/mm3 (0.00-0.68); EOSINOPHILS PERCENT AUTO 1 % (0-6); Hematocrit 42.4 % (33.0-51.0); Hemoglobin 13.1 g/dL (11.5-16.0); IMMATURE GRAN ABSOLUTE AUTO 0.02 K/mm3 (0.00-0.10); IMMATURE GRAN PERCENT AUTO 0 % (0-1); LYMPHOCYTES ABSOLUTE AUTO 1.95 K/mm3 (0.84-5.20); LYMPHOCYTES PERCENT AUTO 25 % (21-46); MONOCYTES ABSOLUTE AUTO 0.45 K/mm3 (0.16-1.47); MONOCYTES PERCENT AUTO 6 % (4-13); Mean Corpuscular HGB 29.3 pg (26.0-34.0); Mean Corpuscular HGB Conc 30.9 g/dL (31.5-36.5); Mean Corpuscular Volume 95 fL (80-100); Mean Platelet Volume 10.3 fL (9.1-12.4); NEUTROPHILS ABSOLUTE AUTO 5.28 K/mm3 (1.96-9.15); NEUTROPHILS PERCENT AUTO 67 % (41-73); Platelet Count 273 K/mm3 (150-400); RDW Coefficient Variation 13.9 % (11.7-14.2); RDW Standard Deviation 48.6 fL (35.1-46.3); Red Blood Cell Count 4.47 M/mm3 (3.80-5.20); White Blood Cell Count 7.87 K/mm3 (4.00-11.30)
[2023-08-12 11:12] LABS: Albumin, Blood 3.7 g/dL (3.4-5.0); Albumin/Globulin Ratio 0.9 (0.8-1.8); Bilirubin, Total 0.5 mg/dL (0.1-1.0); Bun/Creatinine Ratio 32.6 (12.0-20.0); Calcium, Blood 7.9 mg/dL (8.5-10.1); Creatinine, Blood 0.83 mg/dL (0.40-1.00); Globulin, Blood 3.9 g/dL (2.2-4.0); Potassium, Blood 4.3 mmol/L (3.5-5.5); Total Protein, Blood 7.6 g/dL (6.4-8.2)
== END 2023-08-12 11:24 | disposition home or self-care (01) ==
LOC: ATC 00:16
PROVIDERS: Internal Medicine Rheumatology
DX: M81.0 Age-related osteoporosis without current pathological fracture (principal); M05.9 Rheumatoid arthritis with rheumatoid factor, unspecified
CPT/HCPCS: 80053; 85025; 85651; 96365; J0129-JA

== ENCOUNTER 2023-09-16 01:29 | Day surgery (SDC) | payer OTHER ==
[2023-09-16 08:35] VITALS: BP 168/73
[2023-09-16 09:37] LABS: Albumin, Blood 3.6 g/dL (3.4-5.0); Albumin/Globulin Ratio 1.1 (0.8-1.8); Bilirubin, Total 0.5 mg/dL (0.1-1.0); Bun/Creatinine Ratio 34.4 (12.0-20.0); Calcium, Blood 9.2 mg/dL (8.5-10.1); Creatinine, Blood 0.84 mg/dL (0.40-1.00); Globulin, Blood 3.2 g/dL (2.2-4.0); Potassium, Blood 3.9 mmol/L (3.5-5.5); Total Protein, Blood 6.8 g/dL (6.4-8.2)
[2023-09-16 10:01] VITALS: BP 155/86
[2023-09-16 11:08] LABS: BASOPHILS ABSOLUTE AUTO 0.05 K/mm3 (0.00-0.23); BASOPHILS PERCENT AUTO 1 % (0-2); EOSINOPHILS ABSOLUTE AUTO 0.11 K/mm3 (0.00-0.68); EOSINOPHILS PERCENT AUTO 2 % (0-6); Hematocrit 35.7 % (33.0-51.0); Hemoglobin 11.4 g/dL (11.5-16.0); IMMATURE GRAN ABSOLUTE AUTO 0.02 K/mm3 (0.00-0.10); IMMATURE GRAN PERCENT AUTO 0 % (0-1); LYMPHOCYTES ABSOLUTE AUTO 0.91 K/mm3 (0.84-5.20); LYMPHOCYTES PERCENT AUTO 12 % (21-46); MONOCYTES ABSOLUTE AUTO 0.41 K/mm3 (0.16-1.47); MONOCYTES PERCENT AUTO 6 % (4-13); Mean Corpuscular HGB 30.1 pg (26.0-34.0); Mean Corpuscular HGB Conc 31.9 g/dL (31.5-36.5); Mean Corpuscular Volume 94 fL (80-100); Mean Platelet Volume 10.1 fL (9.1-12.4); NEUTROPHILS ABSOLUTE AUTO 5.95 K/mm3 (1.96-9.15); NEUTROPHILS PERCENT AUTO 80 % (41-73); Platelet Count 279 K/mm3 (150-400); RDW Coefficient Variation 14.1 % (11.7-14.2); Red Blood Cell Count 3.79 M/mm3 (3.80-5.20); White Blood Cell Count 7.45 K/mm3 (4.00-11.30)
== END 2023-09-16 10:06 | disposition home or self-care (01) ==
LOC: ATC 01:29
PROVIDERS: Internal Medicine Rheumatology
DX: M05.9 Rheumatoid arthritis with rheumatoid factor, unspecified (principal); J44.9 Chronic obstructive pulmonary disease, unspecified; M81.0 Age-related osteoporosis without current pathological fracture; M19.90 Unspecified osteoarthritis, unspecified site
CPT/HCPCS: 80053; 85025; 85651; 96365; J0129-JA

== ENCOUNTER 2023-10-14 01:42 | Day surgery (SDC) | payer OTHER ==
[2023-10-14 09:10] VITALS: BP 113/46
[2023-10-14 10:08] LABS: BASOPHILS ABSOLUTE AUTO 0.06 K/mm3 (0.00-0.23); BASOPHILS PERCENT AUTO 1 % (0-2); EOSINOPHILS ABSOLUTE AUTO 0.13 K/mm3 (0.00-0.68); EOSINOPHILS PERCENT AUTO 2 % (0-6); Hematocrit 37.8 % (33.0-51.0); Hemoglobin 11.8 g/dL (11.5-16.0); IMMATURE GRAN ABSOLUTE AUTO 0.03 K/mm3 (0.00-0.10); IMMATURE GRAN PERCENT AUTO 0 % (0-1); LYMPHOCYTES PERCENT AUTO 15 % (21-46); MONOCYTES ABSOLUTE AUTO 0.54 K/mm3 (0.16-1.47); MONOCYTES PERCENT AUTO 6 % (4-13); Mean Corpuscular HGB 29.9 pg (26.0-34.0); Mean Corpuscular HGB Conc 31.2 g/dL (31.5-36.5); Mean Corpuscular Volume 96 fL (80-100); Mean Platelet Volume 9.9 fL (9.1-12.4); NEUTROPHILS ABSOLUTE AUTO 6.69 K/mm3 (1.96-9.15); NEUTROPHILS PERCENT AUTO 76 % (41-73); Platelet Count 302 K/mm3 (150-400); RDW Coefficient Variation 13.4 % (11.7-14.2); RDW Standard Deviation 47.3 fL (35.1-46.3); Red Blood Cell Count 3.95 M/mm3 (3.80-5.20); White Blood Cell Count 8.75 K/mm3 (4.00-11.30)
[2023-10-14 10:27] LABS: Albumin, Blood 3.5 g/dL (3.4-5.0); Albumin/Globulin Ratio 1.1 (0.8-1.8); Bilirubin, Total 0.4 mg/dL (0.1-1.0); Bun/Creatinine Ratio 34.1 (12.0-20.0); Calcium, Blood 8.8 mg/dL (8.5-10.1); Creatinine, Blood 0.76 mg/dL (0.40-1.00); Globulin, Blood 3.1 g/dL (2.2-4.0); Potassium, Blood 4.2 mmol/L (3.5-5.5); Total Protein, Blood 6.6 g/dL (6.4-8.2)
== END 2023-10-14 10:46 | disposition home or self-care (01) ==
LOC: ATC 01:42
PROVIDERS: Internal Medicine Rheumatology
DX: M05.9 Rheumatoid arthritis with rheumatoid factor, unspecified (principal)
CPT/HCPCS: 80053; 85025; 85651; 96365; J0129-JA

== ENCOUNTER 2023-11-12 02:46 | Day surgery (SDC) | payer OTHER ==
[2023-11-12 09:38] VITALS: BP 118/73
[2023-11-12 10:38] LABS: BASOPHILS ABSOLUTE AUTO 0.07 K/mm3 (0.00-0.23); BASOPHILS PERCENT AUTO 1 % (0-2); EOSINOPHILS ABSOLUTE AUTO 0.16 K/mm3 (0.00-0.68); EOSINOPHILS PERCENT AUTO 2 % (0-6); Hematocrit 39.6 % (33.0-51.0); Hemoglobin 12.5 g/dL (11.5-16.0); IMMATURE GRAN ABSOLUTE AUTO 0.02 K/mm3 (0.00-0.10); IMMATURE GRAN PERCENT AUTO 0 % (0-1); LYMPHOCYTES ABSOLUTE AUTO 2.08 K/mm3 (0.84-5.20); LYMPHOCYTES PERCENT AUTO 23 % (21-46); MONOCYTES ABSOLUTE AUTO 0.65 K/mm3 (0.16-1.47); MONOCYTES PERCENT AUTO 7 % (4-13); Mean Corpuscular HGB 30.2 pg (26.0-34.0); Mean Corpuscular HGB Conc 31.6 g/dL (31.5-36.5); Mean Corpuscular Volume 96 fL (80-100); Mean Platelet Volume 10.3 fL (9.1-12.4); NEUTROPHILS PERCENT AUTO 68 % (41-73); Platelet Count 305 K/mm3 (150-400); RDW Coefficient Variation 13.2 % (11.7-14.2); RDW Standard Deviation 46.8 fL (35.1-46.3); Red Blood Cell Count 4.14 M/mm3 (3.80-5.20); White Blood Cell Count 9.18 K/mm3 (4.00-11.30)
[2023-11-12 10:43] LABS: Albumin, Blood 3.5 g/dL (3.4-5.0); Albumin/Globulin Ratio 1.1 (0.8-1.8); Bilirubin, Total 0.5 mg/dL (0.1-1.0); Bun/Creatinine Ratio 29.3 (12.0-20.0); Calcium, Blood 8.9 mg/dL (8.5-10.1); Creatinine, Blood 0.85 mg/dL (0.40-1.00); Globulin, Blood 3.3 g/dL (2.2-4.0); Potassium, Blood 4.3 mmol/L (3.5-5.5); Total Protein, Blood 6.8 g/dL (6.4-8.2)
--- NOTE | 2023-11-12 11:27 | NUR ---
STOP TIME: 1455
== END 2023-11-12 10:25 | disposition home or self-care (01) ==
LOC: ATC 02:46
PROVIDERS: Internal Medicine Rheumatology
DX: M05.9 Rheumatoid arthritis with rheumatoid factor, unspecified (principal); J44.9 Chronic obstructive pulmonary disease, unspecified; Z79.899 Other long term (current) drug therapy
CPT/HCPCS: 80053; 85025; 85651; 96365; J0129-JA